=== PATIENT | male | born 1945 | race Caucasian/White ===

== ENCOUNTER 2023-10-29 15:37 | Emergency (ER) | payer OTHER ==
[~2023-10-29] VITALS: Ht 172.7 cm; Wt 80.3 kg
[2023-10-29] MEDS ORDERED: LIDOCAINE/EPI 1% 1:100000 20 ML VIAL INJ ONE (15:45)
[2023-10-29] MEDS ORDERED: ACETAMINOPHEN 500 MG TABLET PO ONE (15:45)
[2023-10-29 15:46] VITALS: BP_SYST 120; PULSE 93; RESP 19; TEMP 99.9; O2SAT 97
[2023-10-29] MEDS ORDERED: DIPHTH,PERTUSS(ACELL),TET VAC 0.5 ML VIAL (Tdap) I.M. ONE (17:00)
[2023-10-29] MEDS ORDERED: BACITRACIN 1 GM OINT TP ONE (17:00)
[2023-10-29] MEDS ORDERED: IBUP-1969 PO (17:06)
[2023-10-29 17:24] VITALS: BP_SYST 118; PULSE 93; RESP 19; TEMP 99.9; O2SAT 97
[2023-10-30] MEDS ORDERED: DIPHTH,PERTUSS(ACELL),TET VAC 0.5 ML VIAL (Tdap) I.M. ONE (11:03)
== END 2023-10-29 17:24 | disposition home or self-care (01) ==
LOC: SED 15:37
DX: S01.01XA Laceration without foreign body of scalp, initial encounter (principal); S09.90XA Unspecified injury of head, initial encounter; Z88.8 Allergy status to other drugs, medicaments and biological substances; Z79.899 Other long term (current) drug therapy; W18.39XA Other fall on same level, initial encounter; Y93.89 Activity, other specified; Y92.89 Other specified places as the place of occurrence of the external cause; Y99.8 Other external cause status
CPT/HCPCS: 70450-TC; 76376; 90715; 93005; 99284

== ENCOUNTER 2023-11-09 18:12 | Emergency (ER) | payer OTHER ==
[~2023-11-09] VITALS: Ht 172.7 cm; Wt 82.6 kg
[~2023-11-09 18:12] MED LIST: IBUP-1969 PO
[2023-11-09 18:13] VITALS: BP_SYST 125; PULSE 93; RESP 19; TEMP 97.2; O2SAT 98
[2023-11-09 18:41] VITALS: BP_SYST 125; PULSE 93; RESP 19; TEMP 97.2; O2SAT 98
== END 2023-11-09 18:41 | disposition home or self-care (01) ==
LOC: SED 18:12
DX: S01.01XD Laceration without foreign body of scalp, subsequent encounter (principal); Z48.02 Encounter for removal of sutures; W18.39XD Other fall on same level, subsequent encounter
CPT/HCPCS: 99281

== ENCOUNTER 2023-11-25 13:07 | Inpatient (IN) | payer OTHER ==
[~2023-11-25] VITALS: Ht 172.7 cm; Wt 73.2 kg
[2023-11-25 13:07] VITALS: BP_SYST 131; PULSE 110; RESP 18; TEMP 97; O2SAT 94
[2023-11-25 15:49] LABS: BASOPHILS % (AUTO) 0.2 % (0.0-2.0); EOSINOPHILS % (AUTO) 0.3 % (0.0-4.0); HEMATOCRIT 41.5 % (36-54); HEMOGLOBIN 13.8 g/dL (14.0-18.0); LYMPHOCYTES # (AUTO) 0.9 K/uL (1.0-5.5); LYMPHOCYTES % (AUTO) 8.2 % (20.5-51.5); MEAN CORPUSCULAR HEMOGLOBIN 30 pg (27-31); MEAN CORPUSCULAR HGB CONC 33 % (32-36); MEAN CORPUSCULAR VOLUME 89 fL (79.0-98.0); MONOCYTES # (AUTO) 1.1 K/uL (0.0-1.0); MONOCYTES % (AUTO) 9.7 % (1.7-9.3); NEUTROPHILS # (AUTO) 9.4 K/uL (1.8-7.7); NEUTROPHILS % (AUTO) 81.6 % (40.0-70.0); PLATELET COUNT (AUTO) 197 K/uL (130-430); RED BLOOD CELL COUNT(AUTO) 4.65 MIL/uL (4.2-6.2); RED CELL DISTRIBUTION WIDTH 12.9 % (9.0-15.0); WHITE BLOOD COUNT (AUTO) 11.5 K/uL (4.8-10.8)
[2023-11-25 16:01] LABS: ALANINE AMINOTRANSFERASE 30 U/L (12-78); ALBUMIN 3.7 g/dL (3.4-4.8); ANION GAP 14 (5-15); ASPARTATE AMINOTRANSFERASE 39 U/L (10-37); BILIRUBIN,DIRECT 0.2 mg/dL (0.0-0.3); CALCIUM 8.3 mg/dL (8.4-11.0); CARBON DIOXIDE 22 mmol/L (23-29); CHLORIDE 98 mmol/L (98-107); CREATININE 1.39 mg/dL (0.55-1.30); GLUCOSE 104 mg/dL (74-106); POTASSIUM 3.8 mmol/L (3.5-5.1); SODIUM SERUM 134 mmol/L (136-145); TOTAL BILIRUBIN 0.9 mg/dL (0.0-1.0); UREA NITROGEN, BLOOD 26 mg/dL (8-21)
[2023-11-26] VITALS (8 sets, daily range): BP systolic 114–133; PULSE 83–113; RESP 16–18; TEMP 97.3–98.8; O2SAT 94–96
[2023-11-26] MEDS ORDERED: METO50TA16 PO (11:21)
[2023-11-26] MEDS ORDERED: OMEP40CA20 PO (11:21)
[2023-11-26] MEDS ORDERED: ATOR20TA64 PO (11:21)
[2023-11-26] MEDS ORDERED: LOSA1TAB43 PO (11:21)
[2023-11-26] MEDS ORDERED: HYDROcodone/ACETAMIN 5-325 MG TAB (NORCO/ VICODIN) PO PRN (17:15)
[2023-11-26] MEDS ORDERED: ONDANSETRON HCL 4 MG/2 ML VIAL IVP PRN (17:15)
[2023-11-26] MEDS ORDERED: MORPHINE 2 MG/ML INJ. SYRINGE IVP PRN (17:15)
[2023-11-26] MEDS ORDERED: ACETAMINOPHEN 325 MG TABLET PO PRN ×2 (17:15→17:30)
[2023-11-26] MEDS ORDERED: HYDROcodone/ACETAMIN 10-325 MG TAB PO PRN (17:15)
[2023-11-26] MEDS ORDERED: NALOXONE HCL 0.4 MG/ML AMP (NARCAN) IVP PRN ×2 (17:15)
[2023-11-26] MEDS ORDERED: LORazepam 1 MG TABLET PO PRN (17:30)
[2023-11-26] MEDS ORDERED: FOLIC ACID 1 MG, THIAMINE HCL 100 MG, MAGNESIUM SULFATE 1 GM, MVI 10 ML in NACL 0.9% 1,... IV SCH (17:30)
[2023-11-26 17:57] LABS: BASOPHILS % (AUTO) 0.6 % (0.0-2.0); EOSINOPHILS # (AUTO) 0.2 K/uL (0.0-0.4); EOSINOPHILS % (AUTO) 2.6 % (0.0-4.0); HEMATOCRIT 41.1 % (36-54); LYMPHOCYTES # (AUTO) 1.8 K/uL (1.0-5.5); LYMPHOCYTES % (AUTO) 20.4 % (20.5-51.5); MEAN CORPUSCULAR HEMOGLOBIN 30 pg (27-31); MEAN CORPUSCULAR HGB CONC 34 % (32-36); MEAN CORPUSCULAR VOLUME 89 fL (79.0-98.0); MONOCYTES # (AUTO) 1.1 K/uL (0.0-1.0); MONOCYTES % (AUTO) 12.3 % (1.7-9.3); NEUTROPHILS # (AUTO) 5.8 K/uL (1.8-7.7); NEUTROPHILS % (AUTO) 64.1 % (40.0-70.0); PLATELET COUNT (AUTO) 194 K/uL (130-430); RED BLOOD CELL COUNT(AUTO) 4.63 MIL/uL (4.2-6.2); RED CELL DISTRIBUTION WIDTH 12.7 % (9.0-15.0)
[2023-11-26] MEDS: FOLIC ACID 1 MG, MVI 10 ML in NACL 0.9% 1,000 ML IV SCH (18:00)
[2023-11-26 18:08] LABS: ALANINE AMINOTRANSFERASE 47 U/L (12-78); ALBUMIN 3.3 g/dL (3.4-4.8); ANION GAP 9 (5-15); ASPARTATE AMINOTRANSFERASE 77 U/L (10-37); CALCIUM 7.6 mg/dL (8.4-11.0); CARBON DIOXIDE 25 mmol/L (23-29); CHLORIDE 98 mmol/L (98-107); CREATININE 1.35 mg/dL (0.55-1.30); GLUCOSE 101 mg/dL (74-106); POTASSIUM 3.7 mmol/L (3.5-5.1); SODIUM SERUM 132 mmol/L (136-145); THYROID STIMULATING HORMONE 1.39 uIu/mL (0.36-3.74); TOTAL BILIRUBIN 0.5 mg/dL (0.0-1.0); TOTAL PROTEIN, SERUM 6.6 g/dL (6.4-8.3); UREA NITROGEN, BLOOD 23 mg/dL (8-21)
[2023-11-26 18:11] LABS: ALCOHOL, BLOOD < 3 mg/dL (<10)
[2023-11-26 18:26] LABS: HEMOGLOBIN A1C 6.16 % (<5.7)
[2023-11-26] MEDS: NS 500 ML IV ONE (18:30)
[2023-11-26] MEDS: NACL 0.9% 1,000 ML IV SCH (18:30)
[2023-11-26] MEDS: ATORVASTATIN 20 MG TABLET PO ONE (21:22)
[2023-11-26] MEDS: LOSARTAN POTASSIUM 50 MG TABLET (COZAAR) PO ONE (21:22)
[2023-11-26] MEDS: ASPIRIN 81 MG TAB.CHEW PO ONE (21:22)
[2023-11-26] MEDS: THIAMINE HCL 100 MG, MAGNESIUM SULFATE 1 GM in NS 100 ML IV SCH (21:26)
[2023-11-27] VITALS: BP_SYST 112; PULSE 110; RESP 16; TEMP 98.6; O2SAT 96
[2023-11-27 07:22] LABS: BASOPHILS # (AUTO) 0.1 K/uL (0.0-0.2); BASOPHILS % (AUTO) 0.7 % (0.0-2.0); EOSINOPHILS # (AUTO) 0.1 K/uL (0.0-0.4); EOSINOPHILS % (AUTO) 1.3 % (0.0-4.0); HEMATOCRIT 40.8 % (36-54); HEMOGLOBIN 13.7 g/dL (14.0-18.0); LYMPHOCYTES # (AUTO) 1.5 K/uL (1.0-5.5); LYMPHOCYTES % (AUTO) 17.2 % (20.5-51.5); MEAN CORPUSCULAR HEMOGLOBIN 30 pg (27-31); MEAN CORPUSCULAR HGB CONC 34 % (32-36); MEAN CORPUSCULAR VOLUME 89 fL (79.0-98.0); MONOCYTES % (AUTO) 11.1 % (1.7-9.3); NEUTROPHILS # (AUTO) 6.1 K/uL (1.8-7.7); NEUTROPHILS % (AUTO) 69.7 % (40.0-70.0); PLATELET COUNT (AUTO) 177 K/uL (130-430); RED BLOOD CELL COUNT(AUTO) 4.57 MIL/uL (4.2-6.2); RED CELL DISTRIBUTION WIDTH 12.6 % (9.0-15.0); WHITE BLOOD COUNT (AUTO) 8.8 K/uL (4.8-10.8)
[2023-11-27 07:34] LABS: ALANINE AMINOTRANSFERASE 44 U/L (12-78); ALBUMIN 3.2 g/dL (3.4-4.8); ANION GAP 13 (5-15); ASPARTATE AMINOTRANSFERASE 57 U/L (10-37); CALCIUM 8.2 mg/dL (8.4-11.0); CARBON DIOXIDE 21 mmol/L (23-29); CHLORIDE 102 mmol/L (98-107); CREATININE 1.08 mg/dL (0.55-1.30); GLUCOSE 105 mg/dL (74-106); POTASSIUM 3.7 mmol/L (3.5-5.1); SODIUM SERUM 136 mmol/L (136-145); TOTAL BILIRUBIN 0.9 mg/dL (0.0-1.0); TOTAL PROTEIN, SERUM 6.3 g/dL (6.4-8.3); UREA NITROGEN, BLOOD 18 mg/dL (8-21)
[2023-11-27 08:00] VITALS: BP_SYST 127; PULSE 69; RESP 16; TEMP 97.8; O2SAT 94
[2023-11-27] MEDS: ATORVASTATIN 20 MG TABLET PO SCH (09:02)
[2023-11-27] MEDS: ASPIRIN 81 MG TAB.CHEW PO SCH (09:02)
[2023-11-27] MEDS: LOSARTAN POTASSIUM 50 MG TABLET (COZAAR) PO SCH (09:03)
[2023-11-27 11:07] VITALS: BP_SYST 109; PULSE 84; RESP 16; TEMP 97.1; O2SAT 96
[2023-11-27 15:05] VITALS: BP_SYST 120; PULSE 72; RESP 16; TEMP 97.8; O2SAT 95
[2023-11-27 19:00] VITALS: BP_SYST 120; PULSE 86; RESP 16; TEMP 99.4; O2SAT 96
[2023-11-27 20:00] VITALS: BP_SYST 120; PULSE 86; RESP 16; TEMP 99.4; O2SAT 96
[2023-11-28] VITALS: BP_SYST 123; PULSE 73; RESP 16; TEMP 98.4; O2SAT 98
[2023-11-28 06:50] LABS: BASOPHILS % (AUTO) 0.5 % (0.0-2.0); EOSINOPHILS # (AUTO) 0.2 K/uL (0.0-0.4); EOSINOPHILS % (AUTO) 3.3 % (0.0-4.0); HEMATOCRIT 40.7 % (36-54); HEMOGLOBIN 13.7 g/dL (14.0-18.0); LYMPHOCYTES # (AUTO) 1.5 K/uL (1.0-5.5); LYMPHOCYTES % (AUTO) 19.5 % (20.5-51.5); MEAN CORPUSCULAR HEMOGLOBIN 30 pg (27-31); MEAN CORPUSCULAR HGB CONC 34 % (32-36); MEAN CORPUSCULAR VOLUME 89 fL (79.0-98.0); MONOCYTES # (AUTO) 0.8 K/uL (0.0-1.0); NEUTROPHILS # (AUTO) 5.1 K/uL (1.8-7.7); NEUTROPHILS % (AUTO) 66.7 % (40.0-70.0); PLATELET COUNT (AUTO) 168 K/uL (130-430); RED BLOOD CELL COUNT(AUTO) 4.55 MIL/uL (4.2-6.2); RED CELL DISTRIBUTION WIDTH 12.7 % (9.0-15.0); WHITE BLOOD COUNT (AUTO) 7.6 K/uL (4.8-10.8)
[2023-11-28 07:26] LABS: ALANINE AMINOTRANSFERASE 45 U/L (12-78); ALBUMIN 3.3 g/dL (3.4-4.8); ANION GAP 10 (5-15); ASPARTATE AMINOTRANSFERASE 40 U/L (10-37); CALCIUM 8.2 mg/dL (8.4-11.0); CARBON DIOXIDE 25 mmol/L (23-29); CHLORIDE 104 mmol/L (98-107); CREATININE 0.98 mg/dL (0.55-1.30); GLUCOSE 92 mg/dL (74-106); POTASSIUM 3.7 mmol/L (3.5-5.1); SODIUM SERUM 139 mmol/L (136-145); TOTAL BILIRUBIN 0.7 mg/dL (0.0-1.0); TOTAL PROTEIN, SERUM 6.4 g/dL (6.4-8.3); UREA NITROGEN, BLOOD 14 mg/dL (8-21)
[2023-11-28 08:00] VITALS: BP_SYST 147; PULSE 82; RESP 18; TEMP 98.5; O2SAT 95; O2SAT 98
[2023-11-28 11:32] VITALS: BP_SYST 126; PULSE 101; RESP 15; TEMP 97.5; O2SAT 100
[2023-11-28 15:09] VITALS: BP_SYST 120; PULSE 78; RESP 16; TEMP 97.4; O2SAT 95
[2023-11-28 20:00] VITALS: BP_SYST 108; PULSE 76; RESP 18; TEMP 98; O2SAT 100
[2023-11-28 20:59] LABS: CKMB RELATIVE INDEX 0.3 (0.0-2.9); CREATINE KINASE MB 1.6 ng/mL (0-3.6)
[2023-11-29 00:06] LABS: FOLATE (FOLIC ACID) 7.1 ng/mL (>3.0)
[2023-11-29 01:34] VITALS: BP_SYST 163; PULSE 80; RESP 17; TEMP 97.6; O2SAT 97
[2023-11-29 06:15] LABS: BASOPHILS % (AUTO) 0.3 % (0.0-2.0); EOSINOPHILS # (AUTO) 0.1 K/uL (0.0-0.4); EOSINOPHILS % (AUTO) 1.3 % (0.0-4.0); HEMATOCRIT 36.8 % (36-54); HEMOGLOBIN 12.6 g/dL (14.0-18.0); LYMPHOCYTES # (AUTO) 0.8 K/uL (1.0-5.5); LYMPHOCYTES % (AUTO) 7.2 % (20.5-51.5); MEAN CORPUSCULAR HEMOGLOBIN 30 pg (27-31); MEAN CORPUSCULAR HGB CONC 34 % (32-36); MEAN CORPUSCULAR VOLUME 89 fL (79.0-98.0); MONOCYTES # (AUTO) 1.1 K/uL (0.0-1.0); MONOCYTES % (AUTO) 10.1 % (1.7-9.3); NEUTROPHILS # (AUTO) 8.8 K/uL (1.8-7.7); NEUTROPHILS % (AUTO) 81.1 % (40.0-70.0); PLATELET COUNT (AUTO) 153 K/uL (130-430); RED BLOOD CELL COUNT(AUTO) 4.15 MIL/uL (4.2-6.2); RED CELL DISTRIBUTION WIDTH 12.8 % (9.0-15.0); WHITE BLOOD COUNT (AUTO) 10.9 K/uL (4.8-10.8)
[2023-11-29 06:40] LABS: ANION GAP 11 (5-15); CALCIUM 8.1 mg/dL (8.4-11.0); CARBON DIOXIDE 22 mmol/L (23-29); CHLORIDE 107 mmol/L (98-107); CREATININE 0.98 mg/dL (0.55-1.30); GLUCOSE 114 mg/dL (74-106); POTASSIUM 3.8 mmol/L (3.5-5.1); SODIUM SERUM 140 mmol/L (136-145); UREA NITROGEN, BLOOD 11 mg/dL (8-21)
[2023-11-29 08:00] VITALS: BP_SYST 127; PULSE 96; RESP 16; TEMP 98.8; O2SAT 95
[2023-11-29] MEDS ORDERED: OMEPRAZOLE Non-Formulary 20 MG CAPSULE.DR PO SCH (09:00)
[2023-11-29] MEDS ORDERED: PRO40 PO (09:08)
[2023-11-29] MEDS ORDERED: ASA81 PO (09:08)
[2023-11-29] MEDS ORDERED: THIA50TA10 PO (09:08)
[2023-11-29] MEDS: PANTOPRAZOLE SODIUM 40 MG TAB PO SCH (10:05)
[2023-11-29 12:00] VITALS: BP_SYST 121; PULSE 90; RESP 18; TEMP 97.9; O2SAT 95
[2023-11-29 12:01] VITALS: O2SAT 95
[2023-11-29 16:00] VITALS: BP_SYST 129; PULSE 92; RESP 16; TEMP 98.3; O2SAT 95
[2023-11-29 17:43] VITALS: BP_SYST 129; PULSE 92; RESP 16; TEMP 98.3; O2SAT 95
[2023-11-29] MEDS ORDERED: METOPROLOL TARTRATE 50 MG TABLET PO SCH (21:00)
== END 2023-11-29 20:10 | DRG 56 ==
LOC: SED 13:07 → SMU 19:27
PROVIDERS: ADMIT Internal Medicine; ATTEND Family Medicine
DX: G31.2 Degeneration of nervous system due to alcohol (principal); N17.0 Acute kidney failure with tubular necrosis; E87.1 Hypo-osmolality and hyponatremia; F10.20 Alcohol dependence, uncomplicated; E86.0 Dehydration; E78.5 Hyperlipidemia, unspecified; F03.90 Unspecified dementia, unspecified severity, without behavioral disturbance, psychotic disturbance, mood disturbance, and anxiety; R00.0 Tachycardia, unspecified; I12.9 Hypertensive chronic kidney disease with stage 1 through stage 4 chronic kidney disease, or unspecified chronic kidney disease; N18.9 Chronic kidney disease, unspecified; R25.1 Tremor, unspecified
CPT/HCPCS: 36415; 70450-TC; 70551; 76376; 80048; 80053; 80076; 82085; 82140; 82550; 82553; 82607; 82746; 83037; 84443; 85025; 85651; 95816; 97112-GP; 97116-GP; 97530-GP; 99285; G0482; J3411; J3475; J3490; J7030

== ENCOUNTER 2023-12-08 16:48 | Inpatient (IN) | payer OTHER ==
[~2023-12-08] VITALS: Ht 157.5 cm; Wt 101.8 kg
[~2023-12-08 16:48] MED LIST changes: +ASA81 PO; -IBUP-1969 PO; +LOSA1TAB43 PO; +METO50TA16 PO; +OMEP40CA20 PO; +PRO40 PO; +THIA50TA10 PO
[2023-12-08 16:54] VITALS: BP_SYST 134; PULSE 116; RESP 19; TEMP 98.8; O2SAT 90
[2023-12-08 18:16] LABS: HEMATOCRIT 36.2 % (36-54); HEMOGLOBIN 11.9 g/dL (14.0-18.0); MEAN CORPUSCULAR HEMOGLOBIN 29 pg (27-31); MEAN CORPUSCULAR HGB CONC 33 % (32-36); MEAN CORPUSCULAR VOLUME 89 fL (79.0-98.0); PLATELET COUNT (AUTO) 450 K/uL (130-430); RED BLOOD CELL COUNT(AUTO) 4.06 MIL/uL (4.2-6.2); RED CELL DISTRIBUTION WIDTH 13.8 % (9.0-15.0); WHITE BLOOD COUNT (AUTO) 17.8 K/uL (4.8-10.8)
[2023-12-08 18:29] LABS: ANION GAP 12 (5-15); CALCIUM 8.5 mg/dL (8.4-11.0); CARBON DIOXIDE 28 mmol/L (23-29); CHLORIDE 109 mmol/L (98-107); GLUCOSE 149 mg/dL (74-106); INR 1.1 (0.80-1.20); POTASSIUM 3.5 mmol/L (3.5-5.1); PROTHROMBIN TIME 11.8 SECS (9.5-12.5); SODIUM SERUM 149 mmol/L (136-145); UREA NITROGEN, BLOOD 30 mg/dL (8-21)
[2023-12-08 18:34] LABS: BAND % (MANUAL) 5 % (0-6); BASOPHILS % (MANUAL) 0 % (0-2); EOSINOPHILS % (MANUAL) 0 % (0-7); LYMPHOCYTES % (MANUAL) 8 % (20-46); METAMYELOCYTES % 1 % (0-0); MONOCYTES % (MANUAL) 4 % (0-11); PLATELET ESTIMATE INCREASED (ADEQUATE)
[2023-12-08 18:50] LABS: BILIRUBIN,URINE 1+ (NEGATIVE); BLOOD, URINE 3+ (NEGATIVE); CLARITY/URINE CLOUDY (CLEAR); COLOR,URINE RED (YELLOW); GLUCOSE,URINE NEGATIVE (NEGATIVE); KETONES,URINE NEGATIVE (NEGATIVE); LEUKOCYTE ESTERASE ,URINE NEGATIVE (NEGATIVE); NITRITE, URINE POSITIVE (NEGATIVE); PROTEIN URINE 3+ (NEGATIVE)
[2023-12-08 18:52] LABS: ALANINE AMINOTRANSFERASE 118 U/L (12-78); ASPARTATE AMINOTRANSFERASE 47 U/L (10-37); BILIRUBIN,DIRECT 0.1 mg/dL (0.0-0.3); TOTAL BILIRUBIN 0.3 mg/dL (0.0-1.0)
[2023-12-08 19:03] LABS: BACTERIA,URINE None Seen /HPF (None Seen); MUCUS,URINE 1+ /LPF (None Seen); RBC,URINE >100 /HPF (0-3); URIC ACID CRYSTALS,URINE 0-10 /HPF (None Seen); WBC,URINE 20-50 /HPF (0-3)
[2023-12-08] MEDS ORDERED: cefTRIAXone 2 GM VIAL ONE (19:28)
[2023-12-08] MEDS ORDERED: ACETAMINOPHEN 325 MG SUPP.RECT RC ONE (19:30)
[2023-12-08] MEDS ORDERED: MORPHINE 4 MG INJ. 4 MG/ML VIAL IVP PRN (20:45)
[2023-12-08] MEDS ORDERED: NACL 0.9% 1,000 ML IV ONE (20:45)
[2023-12-08] MEDS ORDERED: ONDANSETRON HCL 4 MG/2 ML VIAL IVP PRN (20:45)
[2023-12-08] MEDS ORDERED: HYDROcodone/ACETAMIN 5-325 MG TAB (NORCO/ VICODIN) PO PRN (20:45)
[2023-12-08] MEDS ORDERED: ACETAMINOPHEN 325 MG TABLET PO PRN (20:45)
[2023-12-08] MEDS ORDERED: HYDROcodone/ACETAMIN 10-325 MG TAB PO PRN (20:45)
[2023-12-08] MEDS: METOPROLOL TARTRATE 50 MG TABLET PO SCH (21:00)
[2023-12-08 22:31] VITALS: BP_SYST 128; PULSE 112; RESP 18; TEMP 99.2; O2SAT 95
[2023-12-08] MEDS ORDERED: hydrALAZINE HCL 20 MG/ML VIAL IVP PRN (23:15)
[2023-12-08] MEDS ORDERED: LORazepam 2 MG/ML VIAL IVP ONE (23:15)
[2023-12-08] MEDS: NACL 0.9% 1,000 ML IV SCH (23:33)
[2023-12-09] VITALS (10 sets, daily range): BP systolic 118–145; PULSE 74–108; RESP 16–19; TEMP 97–98.9; O2SAT 93–99
[2023-12-09 06:18] LABS: BASOPHILS % (AUTO) 0.2 % (0.0-2.0); EOSINOPHILS # (AUTO) 0.1 K/uL (0.0-0.4); EOSINOPHILS % (AUTO) 0.8 % (0.0-4.0); HEMATOCRIT 32.1 % (36-54); HEMOGLOBIN 10.5 g/dL (14.0-18.0); LYMPHOCYTES # (AUTO) 1.5 K/uL (1.0-5.5); LYMPHOCYTES % (AUTO) 9.9 % (20.5-51.5); MEAN CORPUSCULAR HEMOGLOBIN 29 pg (27-31); MEAN CORPUSCULAR HGB CONC 33 % (32-36); MEAN CORPUSCULAR VOLUME 90 fL (79.0-98.0); MONOCYTES # (AUTO) 1.3 K/uL (0.0-1.0); NEUTROPHILS # (AUTO) 11.8 K/uL (1.8-7.7); NEUTROPHILS % (AUTO) 80.1 % (40.0-70.0); PLATELET COUNT (AUTO) 365 K/uL (130-430); RED BLOOD CELL COUNT(AUTO) 3.58 MIL/uL (4.2-6.2); RED CELL DISTRIBUTION WIDTH 13.6 % (9.0-15.0); WHITE BLOOD COUNT (AUTO) 14.7 K/uL (4.8-10.8)
[2023-12-09 06:57] LABS: ALANINE AMINOTRANSFERASE 90 U/L (12-78); ALBUMIN 1.8 g/dL (3.4-4.8); ANION GAP 10 (5-15); ASPARTATE AMINOTRANSFERASE 32 U/L (10-37); CARBON DIOXIDE 26 mmol/L (23-29); CHLORIDE 115 mmol/L (98-107); CREATININE 1.34 mg/dL (0.55-1.30); GLUCOSE 109 mg/dL (74-106); POTASSIUM 4.4 mmol/L (3.5-5.1); SODIUM SERUM 151 mmol/L (136-145); TOTAL BILIRUBIN 0.2 mg/dL (0.0-1.0); TOTAL PROTEIN, SERUM 6.2 g/dL (6.4-8.3); UREA NITROGEN, BLOOD 26 mg/dL (8-21)
[2023-12-09] MEDS: ASPIRIN 81 MG TAB.CHEW PO SCH (08:22)
[2023-12-09] MEDS: NACL 0.9% 1,000 ML IV SCH (08:31)
[2023-12-09] MEDS ORDERED: cefTRIAXone 1 GM in D5W 50 ML IV SCH (09:00)
[2023-12-09] MEDS ORDERED: NS 500 ML IV ONE (10:00)
[2023-12-09] MEDS ORDERED: IPRATROPIUM/ALBUTEROL SULFATE 3 ML AMPUL.NEB (DUONEB) INH ONE (10:15)
[2023-12-09] MEDS: D5/0.45 NS 1,000 ML IV SCH ×2 (11:34→21:09)
[2023-12-09] MEDS: CEFEPIME 2 GM in D5W 100 ML IV SCH (11:47)
[2023-12-09] MEDS: VANCOMYCIN HCL 1.25 GM/NS 250 ML IV SCH (13:23)
[2023-12-09] MEDS: IPRATROPIUM/ALBUTEROL SULFATE 3 ML AMPUL.NEB (DUONEB) INH SCH ×3 (15:40→23:01)
[2023-12-09] MEDS: METOPROLOL TARTRATE 50 MG TABLET PO SCH (21:00)
[2023-12-10] VITALS (13 sets, daily range): BP systolic 94–123; PULSE 67–85; RESP 16–18; TEMP 97.1–97.9; O2SAT 93–99
[2023-12-10] MEDS: IPRATROPIUM/ALBUTEROL SULFATE 3 ML AMPUL.NEB (DUONEB) INH SCH ×6 (03:42→23:17)
[2023-12-10] MEDS: D5/0.45 NS 1,000 ML IV SCH ×2 (06:12→19:49)
[2023-12-10] MEDS: ASPIRIN 81 MG TAB.CHEW PO SCH (09:00)
[2023-12-10] MEDS: DOXYCYCLINE HYCLATE 100 MG CAPSULE PO SCH ×2 (09:00→21:34)
[2023-12-10 09:46] LABS: BASOPHILS % (AUTO) 0.3 % (0.0-2.0); EOSINOPHILS # (AUTO) 0.3 K/uL (0.0-0.4); EOSINOPHILS % (AUTO) 2.9 % (0.0-4.0); HEMATOCRIT 31.8 % (36-54); HEMOGLOBIN 10.5 g/dL (14.0-18.0); LYMPHOCYTES # (AUTO) 1.6 K/uL (1.0-5.5); LYMPHOCYTES % (AUTO) 16.9 % (20.5-51.5); MEAN CORPUSCULAR HEMOGLOBIN 30 pg (27-31); MEAN CORPUSCULAR HGB CONC 33 % (32-36); MEAN CORPUSCULAR VOLUME 90 fL (79.0-98.0); MONOCYTES # (AUTO) 0.9 K/uL (0.0-1.0); MONOCYTES % (AUTO) 9.4 % (1.7-9.3); NEUTROPHILS # (AUTO) 6.6 K/uL (1.8-7.7); NEUTROPHILS % (AUTO) 70.5 % (40.0-70.0); PLATELET COUNT (AUTO) 337 K/uL (130-430); RED BLOOD CELL COUNT(AUTO) 3.54 MIL/uL (4.2-6.2); RED CELL DISTRIBUTION WIDTH 13.2 % (9.0-15.0); WHITE BLOOD COUNT (AUTO) 9.3 K/uL (4.8-10.8)
[2023-12-10 10:12] LABS: ALANINE AMINOTRANSFERASE 65 U/L (12-78); ALBUMIN 1.8 g/dL (3.4-4.8); ANION GAP 7 (5-15); ASPARTATE AMINOTRANSFERASE 28 U/L (10-37); CALCIUM 8.1 mg/dL (8.4-11.0); CARBON DIOXIDE 28 mmol/L (23-29); CHLORIDE 113 mmol/L (98-107); GLUCOSE 140 mg/dL (74-106); SODIUM SERUM 148 mmol/L (136-145); TOTAL BILIRUBIN 0.3 mg/dL (0.0-1.0); TOTAL PROTEIN, SERUM 6.2 g/dL (6.4-8.3); UREA NITROGEN, BLOOD 17 mg/dL (8-21)
[2023-12-10] MEDS: CEFEPIME 2 GM in D5W 100 ML IV SCH (12:26)
[2023-12-10] MEDS: VANCOMYCIN HCL 1.25 GM/NS 250 ML IV SCH (13:41)
[2023-12-10 20:38] LABS: COVID19 ANTIGEN SOFIA FIA NEGATIVE (NEGATIVE); INFLUENZA TYPE A Negative (NEGATIVE); INFLUENZA TYPE B NEGATIVE (NEGATIVE)
[2023-12-10] MEDS: METOPROLOL TARTRATE 50 MG TABLET PO SCH (21:00)
[2023-12-11] VITALS (11 sets, daily range): BP systolic 108–134; PULSE 67–85; RESP 16–20; TEMP 97.2–98.8; O2SAT 90–98
[2023-12-11] MEDS: D5/0.45 NS 1,000 ML IV SCH (03:53)
[2023-12-11] MEDS: IPRATROPIUM/ALBUTEROL SULFATE 3 ML AMPUL.NEB (DUONEB) INH SCH ×5 (05:46→20:01)
[2023-12-11 08:26] LABS: BASOPHILS % (AUTO) 0.3 % (0.0-2.0); EOSINOPHILS # (AUTO) 0.3 K/uL (0.0-0.4); EOSINOPHILS % (AUTO) 4.5 % (0.0-4.0); HEMATOCRIT 32.8 % (36-54); HEMOGLOBIN 10.8 g/dL (14.0-18.0); LYMPHOCYTES # (AUTO) 1.3 K/uL (1.0-5.5); LYMPHOCYTES % (AUTO) 17.5 % (20.5-51.5); MEAN CORPUSCULAR HEMOGLOBIN 29 pg (27-31); MEAN CORPUSCULAR HGB CONC 33 % (32-36); MEAN CORPUSCULAR VOLUME 89 fL (79.0-98.0); MONOCYTES # (AUTO) 0.6 K/uL (0.0-1.0); MONOCYTES % (AUTO) 8.3 % (1.7-9.3); NEUTROPHILS # (AUTO) 5.2 K/uL (1.8-7.7); NEUTROPHILS % (AUTO) 69.4 % (40.0-70.0); PLATELET COUNT (AUTO) 317 K/uL (130-430); RED BLOOD CELL COUNT(AUTO) 3.68 MIL/uL (4.2-6.2); RED CELL DISTRIBUTION WIDTH 13.6 % (9.0-15.0); WHITE BLOOD COUNT (AUTO) 7.4 K/uL (4.8-10.8)
[2023-12-11 08:42] LABS: ALANINE AMINOTRANSFERASE 49 U/L (12-78); ALBUMIN 1.8 g/dL (3.4-4.8); ANION GAP 10 (5-15); ASPARTATE AMINOTRANSFERASE 24 U/L (10-37); CARBON DIOXIDE 24 mmol/L (23-29); CHLORIDE 108 mmol/L (98-107); CREATININE 1.08 mg/dL (0.55-1.30); GLUCOSE 142 mg/dL (74-106); POTASSIUM 3.6 mmol/L (3.5-5.1); SODIUM SERUM 142 mmol/L (136-145); TOTAL BILIRUBIN 0.4 mg/dL (0.0-1.0); TOTAL PROTEIN, SERUM 6.2 g/dL (6.4-8.3); UREA NITROGEN, BLOOD 13 mg/dL (8-21)
[2023-12-11] MEDS: CEFEPIME 2 GM in D5W 100 ML IV SCH (11:19)
[2023-12-11] MEDS: DOXYCYCLINE HYCLATE 100 MG CAPSULE PO SCH ×2 (11:19→20:56)
[2023-12-11] MEDS: ASPIRIN 81 MG TAB.CHEW PO SCH (11:19)
[2023-12-11] MEDS: VANCOMYCIN HCL 1.25 GM/NS 250 ML IV SCH (12:58)
[2023-12-11] MEDS: METOPROLOL TARTRATE 50 MG TABLET PO SCH (20:56)
[2023-12-12] VITALS (13 sets, daily range): BP systolic 112–129; PULSE 67–96; RESP 16–20; TEMP 97.1–98.3; O2SAT 92–98
[2023-12-12] MEDS: IPRATROPIUM/ALBUTEROL SULFATE 3 ML AMPUL.NEB (DUONEB) INH SCH ×7 (00:07→23:37)
[2023-12-12 05:36] LABS: ERYTHROCYTE SEDIMENTATION RATE 22 MM/HR (0-15)
[2023-12-12 05:43] LABS: BASOPHILS % (AUTO) 0.5 % (0.0-2.0); EOSINOPHILS # (AUTO) 0.4 K/uL (0.0-0.4); EOSINOPHILS % (AUTO) 5.4 % (0.0-4.0); HEMATOCRIT 32.3 % (36-54); HEMOGLOBIN 10.7 g/dL (14.0-18.0); LYMPHOCYTES # (AUTO) 1.3 K/uL (1.0-5.5); LYMPHOCYTES % (AUTO) 17.7 % (20.5-51.5); MEAN CORPUSCULAR HEMOGLOBIN 29 pg (27-31); MEAN CORPUSCULAR HGB CONC 33 % (32-36); MEAN CORPUSCULAR VOLUME 89 fL (79.0-98.0); MONOCYTES # (AUTO) 0.7 K/uL (0.0-1.0); MONOCYTES % (AUTO) 9.1 % (1.7-9.3); NEUTROPHILS # (AUTO) 4.9 K/uL (1.8-7.7); NEUTROPHILS % (AUTO) 67.3 % (40.0-70.0); PLATELET COUNT (AUTO) 311 K/uL (130-430); RED BLOOD CELL COUNT(AUTO) 3.65 MIL/uL (4.2-6.2); RED CELL DISTRIBUTION WIDTH 13.3 % (9.0-15.0); WHITE BLOOD COUNT (AUTO) 7.2 K/uL (4.8-10.8)
[2023-12-12 06:14] LABS: ALANINE AMINOTRANSFERASE 41 U/L (12-78); ALBUMIN 1.9 g/dL (3.4-4.8); ANION GAP 10 (5-15); ASPARTATE AMINOTRANSFERASE 21 U/L (10-37); CALCIUM 8.1 mg/dL (8.4-11.0); CARBON DIOXIDE 26 mmol/L (23-29); CHLORIDE 106 mmol/L (98-107); CREATININE 1.06 mg/dL (0.55-1.30); GLUCOSE 97 mg/dL (74-106); POTASSIUM 4.1 mmol/L (3.5-5.1); SODIUM SERUM 142 mmol/L (136-145); TOTAL BILIRUBIN 0.6 mg/dL (0.0-1.0); TOTAL PROTEIN, SERUM 6.2 g/dL (6.4-8.3); UREA NITROGEN, BLOOD 11 mg/dL (8-21)
[2023-12-12] MEDS: ASPIRIN 81 MG TAB.CHEW PO SCH (08:53)
[2023-12-12] MEDS: DOXYCYCLINE HYCLATE 100 MG CAPSULE PO SCH ×2 (08:53→21:25)
[2023-12-12] MEDS: CEFEPIME 2 GM in D5W 100 ML IV SCH (12:16)
[2023-12-12] MEDS: METOPROLOL TARTRATE 50 MG TABLET PO SCH (21:25)
[2023-12-13] VITALS (11 sets, daily range): BP systolic 102–124; PULSE 60–116; RESP 15–22; TEMP 97.5–98.5; O2SAT 91–98
[2023-12-13] MEDS: IPRATROPIUM/ALBUTEROL SULFATE 3 ML AMPUL.NEB (DUONEB) INH SCH ×5 (03:00→20:50)
[2023-12-13 05:47] LABS: ERYTHROCYTE SEDIMENTATION RATE 47 MM/HR (0-15)
[2023-12-13 05:54] LABS: BASOPHILS % (AUTO) 0.7 % (0.0-2.0); EOSINOPHILS # (AUTO) 0.3 K/uL (0.0-0.4); EOSINOPHILS % (AUTO) 4.4 % (0.0-4.0); HEMATOCRIT 33.3 % (36-54); HEMOGLOBIN 11.2 g/dL (14.0-18.0); LYMPHOCYTES # (AUTO) 1.2 K/uL (1.0-5.5); LYMPHOCYTES % (AUTO) 16.9 % (20.5-51.5); MEAN CORPUSCULAR HEMOGLOBIN 30 pg (27-31); MEAN CORPUSCULAR HGB CONC 34 % (32-36); MONOCYTES # (AUTO) 0.7 K/uL (0.0-1.0); MONOCYTES % (AUTO) 10.2 % (1.7-9.3); NEUTROPHILS # (AUTO) 4.7 K/uL (1.8-7.7); NEUTROPHILS % (AUTO) 67.8 % (40.0-70.0); PLATELET COUNT (AUTO) 296 K/uL (130-430); RED BLOOD CELL COUNT(AUTO) 3.82 MIL/uL (4.2-6.2)
[2023-12-13 06:34] LABS: ALANINE AMINOTRANSFERASE 40 U/L (12-78); ANION GAP 12 (5-15); ASPARTATE AMINOTRANSFERASE 23 U/L (10-37); CALCIUM 8.2 mg/dL (8.4-11.0); CARBON DIOXIDE 24 mmol/L (23-29); CHLORIDE 105 mmol/L (98-107); CREATININE 1.07 mg/dL (0.55-1.30); GLUCOSE 96 mg/dL (74-106); POTASSIUM 3.7 mmol/L (3.5-5.1); SODIUM SERUM 141 mmol/L (136-145); TOTAL BILIRUBIN 0.4 mg/dL (0.0-1.0); TOTAL PROTEIN, SERUM 6.2 g/dL (6.4-8.3); UREA NITROGEN, BLOOD 14 mg/dL (8-21)
[2023-12-13 08:19] LABS: MEAN CORPUSCULAR VOLUME 87 fL (79.0-98.0)
[2023-12-13] MEDS: ASPIRIN 81 MG TAB.CHEW PO SCH (10:38)
[2023-12-13] MEDS: DOXYCYCLINE HYCLATE 100 MG CAPSULE PO SCH ×2 (10:39→21:29)
[2023-12-13] MEDS: CEFEPIME 2 GM in D5W 100 ML IV SCH (10:40)
[2023-12-13] MEDS ORDERED: DOXY100C5 PO (12:28)
[2023-12-13] MEDS ORDERED: CEFE2FRO IV (12:28)
[2023-12-13] MEDS ORDERED: LORazepam 2 MG/ML VIAL IVP ONE (21:15)
[2023-12-13] MEDS: METOPROLOL TARTRATE 50 MG TABLET PO SCH (21:29)
[2023-12-14] VITALS (10 sets, daily range): BP systolic 97–121; PULSE 99–109; RESP 18–20; TEMP 98.5–98.8; O2SAT 88–98
[2023-12-14] MEDS: IPRATROPIUM/ALBUTEROL SULFATE 3 ML AMPUL.NEB (DUONEB) INH SCH ×7 (00:03→23:20)
[2023-12-14 07:25] LABS: ALANINE AMINOTRANSFERASE 54 U/L (12-78); ALBUMIN 2.2 g/dL (3.4-4.8); ANION GAP 11 (5-15); BASOPHILS # (AUTO) 0.1 K/uL (0.0-0.2); BASOPHILS % (AUTO) 0.5 % (0.0-2.0); CARBON DIOXIDE 23 mmol/L (23-29); CHLORIDE 108 mmol/L (98-107); CREATININE 1.11 mg/dL (0.55-1.30); EOSINOPHILS # (AUTO) 0.3 K/uL (0.0-0.4); EOSINOPHILS % (AUTO) 2.4 % (0.0-4.0); GLUCOSE 114 mg/dL (74-106); HEMATOCRIT 35.4 % (36-54); HEMOGLOBIN 11.8 g/dL (14.0-18.0); LYMPHOCYTES # (AUTO) 1.2 K/uL (1.0-5.5); LYMPHOCYTES % (AUTO) 11.3 % (20.5-51.5); MEAN CORPUSCULAR HEMOGLOBIN 29 pg (27-31); MEAN CORPUSCULAR HGB CONC 33 % (32-36); MEAN CORPUSCULAR VOLUME 88 fL (79.0-98.0); MONOCYTES % (AUTO) 9.3 % (1.7-9.3); NEUTROPHILS # (AUTO) 8.3 K/uL (1.8-7.7); NEUTROPHILS % (AUTO) 76.5 % (40.0-70.0); PLATELET COUNT (AUTO) 324 K/uL (130-430); POTASSIUM 3.8 mmol/L (3.5-5.1); RED BLOOD CELL COUNT(AUTO) 4.02 MIL/uL (4.2-6.2); RED CELL DISTRIBUTION WIDTH 13.1 % (9.0-15.0); SODIUM SERUM 142 mmol/L (136-145); TOTAL BILIRUBIN 0.4 mg/dL (0.0-1.0); TOTAL PROTEIN, SERUM 6.5 g/dL (6.4-8.3); UREA NITROGEN, BLOOD 22 mg/dL (8-21); WHITE BLOOD COUNT (AUTO) 10.8 K/uL (4.8-10.8)
[2023-12-14 08:02] LABS: ASPARTATE AMINOTRANSFERASE 53 U/L (10-37); ERYTHROCYTE SEDIMENTATION RATE 77 MM/HR (0-15)
[2023-12-14] MEDS: ASPIRIN 81 MG TAB.CHEW PO SCH (09:31)
[2023-12-14] MEDS: DOXYCYCLINE HYCLATE 100 MG CAPSULE PO SCH ×2 (09:31→21:06)
[2023-12-14] MEDS: CEFEPIME 2 GM in D5W 100 ML IV SCH (11:26)
[2023-12-14] MEDS ORDERED: METOPROLOL SUCCINATE 25 MG TAB.SR.24H (TOPROL XL) PO ONE (16:15)
[2023-12-14] MEDS: METOPROLOL TARTRATE 50 MG TABLET PO SCH (21:06)
[2023-12-15] VITALS (13 sets, daily range): BP systolic 106–118; PULSE 97–128; RESP 16–20; TEMP 98.2–100.7; O2SAT 92–99
[2023-12-15] MEDS: IPRATROPIUM/ALBUTEROL SULFATE 3 ML AMPUL.NEB (DUONEB) INH SCH ×6 (03:34→23:22)
[2023-12-15 06:30] LABS: BASOPHILS # (AUTO) 0.1 K/uL (0.0-0.2); BASOPHILS % (AUTO) 0.5 % (0.0-2.0); EOSINOPHILS # (AUTO) 0.3 K/uL (0.0-0.4); EOSINOPHILS % (AUTO) 2.1 % (0.0-4.0); HEMATOCRIT 36.9 % (36-54); HEMOGLOBIN 12.2 g/dL (14.0-18.0); LYMPHOCYTES # (AUTO) 1.3 K/uL (1.0-5.5); LYMPHOCYTES % (AUTO) 9.8 % (20.5-51.5); MEAN CORPUSCULAR HEMOGLOBIN 29 pg (27-31); MEAN CORPUSCULAR HGB CONC 33 % (32-36); MEAN CORPUSCULAR VOLUME 88 fL (79.0-98.0); MONOCYTES # (AUTO) 1.3 K/uL (0.0-1.0); NEUTROPHILS # (AUTO) 10.1 K/uL (1.8-7.7); NEUTROPHILS % (AUTO) 77.6 % (40.0-70.0); PLATELET COUNT (AUTO) 347 K/uL (130-430); RED BLOOD CELL COUNT(AUTO) 4.21 MIL/uL (4.2-6.2); RED CELL DISTRIBUTION WIDTH 13.6 % (9.0-15.0)
[2023-12-15 06:41] LABS: ERYTHROCYTE SEDIMENTATION RATE 84 MM/HR (0-15)
[2023-12-15 07:09] LABS: ALANINE AMINOTRANSFERASE 66 U/L (12-78); ALBUMIN 2.3 g/dL (3.4-4.8); ANION GAP 11 (5-15); ASPARTATE AMINOTRANSFERASE 52 U/L (10-37); CALCIUM 8.7 mg/dL (8.4-11.0); CARBON DIOXIDE 22 mmol/L (23-29); CHLORIDE 108 mmol/L (98-107); CREATININE 1.15 mg/dL (0.55-1.30); GLUCOSE 128 mg/dL (74-106); POTASSIUM 3.9 mmol/L (3.5-5.1); SODIUM SERUM 141 mmol/L (136-145); TOTAL BILIRUBIN 0.6 mg/dL (0.0-1.0); TOTAL PROTEIN, SERUM 6.7 g/dL (6.4-8.3); UREA NITROGEN, BLOOD 25 mg/dL (8-21)
[2023-12-15] MEDS: ASPIRIN 81 MG TAB.CHEW PO SCH (09:43)
[2023-12-15] MEDS: DOXYCYCLINE HYCLATE 100 MG CAPSULE PO SCH ×2 (09:43→20:53)
[2023-12-15] MEDS: CEFEPIME 2 GM in D5W 100 ML IV SCH (11:50)
[2023-12-15] MEDS: METOPROLOL TARTRATE 50 MG TABLET PO SCH (20:53)
[2023-12-16] VITALS (12 sets, daily range): BP systolic 104–119; PULSE 84–130; RESP 16–20; TEMP 97.1–98.6; O2SAT 92–98
[2023-12-16] MEDS: IPRATROPIUM/ALBUTEROL SULFATE 3 ML AMPUL.NEB (DUONEB) INH SCH ×6 (03:31→23:22)
[2023-12-16 08:13] LABS: ALANINE AMINOTRANSFERASE 77 U/L (12-78); ALBUMIN 2.2 g/dL (3.4-4.8); ANION GAP 12 (5-15); ASPARTATE AMINOTRANSFERASE 48 U/L (10-37); CALCIUM 8.9 mg/dL (8.4-11.0); CARBON DIOXIDE 24 mmol/L (23-29); CHLORIDE 109 mmol/L (98-107); CREATININE 1.26 mg/dL (0.55-1.30); GLUCOSE 119 mg/dL (74-106); POTASSIUM 4.5 mmol/L (3.5-5.1); SODIUM SERUM 145 mmol/L (136-145); TOTAL BILIRUBIN 0.7 mg/dL (0.0-1.0); TOTAL PROTEIN, SERUM 6.7 g/dL (6.4-8.3); UREA NITROGEN, BLOOD 35 mg/dL (8-21)
[2023-12-16 08:21] LABS: BASOPHILS % (AUTO) 0.2 % (0.0-2.0); EOSINOPHILS # (AUTO) 0.2 K/uL (0.0-0.4); EOSINOPHILS % (AUTO) 1.1 % (0.0-4.0); HEMATOCRIT 37.3 % (36-54); HEMOGLOBIN 12.4 g/dL (14.0-18.0); LYMPHOCYTES # (AUTO) 1.1 K/uL (1.0-5.5); LYMPHOCYTES % (AUTO) 6.2 % (20.5-51.5); MEAN CORPUSCULAR HEMOGLOBIN 29 pg (27-31); MEAN CORPUSCULAR HGB CONC 33 % (32-36); MEAN CORPUSCULAR VOLUME 89 fL (79.0-98.0); MONOCYTES # (AUTO) 1.3 K/uL (0.0-1.0); MONOCYTES % (AUTO) 7.6 % (1.7-9.3); NEUTROPHILS # (AUTO) 14.9 K/uL (1.8-7.7); NEUTROPHILS % (AUTO) 84.9 % (40.0-70.0); PLATELET COUNT (AUTO) 404 K/uL (130-430); RED BLOOD CELL COUNT(AUTO) 4.22 MIL/uL (4.2-6.2)
[2023-12-16 08:24] LABS: ERYTHROCYTE SEDIMENTATION RATE 73 MM/HR (0-15); WHITE BLOOD COUNT (AUTO) 17.6 K/uL (4.8-10.8)
[2023-12-16] MEDS: DOXYCYCLINE HYCLATE 100 MG CAPSULE PO SCH ×2 (08:51→21:12)
[2023-12-16] MEDS: ASPIRIN 81 MG TAB.CHEW PO SCH (08:51)
[2023-12-16] MEDS: PIPERACILLIN/TAZOBACTAM 2.25 GM in D5W 50 ML IV SCH ×3 (14:06→23:15)
[2023-12-16] MEDS: NACL 0.9% 1,000 ML IV SCH ×2 (15:30→23:17)
[2023-12-16] MEDS: METOPROLOL TARTRATE 50 MG TABLET PO SCH (21:13)
[2023-12-17] VITALS (12 sets, daily range): BP systolic 104–138; PULSE 54–107; RESP 14–20; TEMP 97.5–99.1; O2SAT 92–100
[2023-12-17 01:07] LABS: BILIRUBIN,URINE NEGATIVE (NEGATIVE); BLOOD, URINE 3+ (NEGATIVE); CLARITY/URINE CLEAR (CLEAR); COLOR,URINE YELLOW (YELLOW); GLUCOSE,URINE NEGATIVE (NEGATIVE); KETONES,URINE NEGATIVE (NEGATIVE); LEUKOCYTE ESTERASE ,URINE NEGATIVE (NEGATIVE); NITRITE, URINE NEGATIVE (NEGATIVE); PROTEIN URINE 1+ (NEGATIVE); UROBILINOGEN,URINE 0.2 (0.2-1.0)
[2023-12-17 02:12] LABS: BACTERIA,URINE RARE /HPF (None Seen)
[2023-12-17] MEDS: IPRATROPIUM/ALBUTEROL SULFATE 3 ML AMPUL.NEB (DUONEB) INH SCH ×6 (03:00→23:54)
[2023-12-17] MEDS: PIPERACILLIN/TAZOBACTAM 2.25 GM in D5W 50 ML IV SCH ×3 (06:08→17:44)
[2023-12-17 07:18] LABS: BASOPHILS % (AUTO) 0.4 % (0.0-2.0); EOSINOPHILS # (AUTO) 0.2 K/uL (0.0-0.4); EOSINOPHILS % (AUTO) 1.4 % (0.0-4.0); HEMATOCRIT 36.3 % (36-54); HEMOGLOBIN 11.9 g/dL (14.0-18.0); LYMPHOCYTES # (AUTO) 1.4 K/uL (1.0-5.5); LYMPHOCYTES % (AUTO) 11.9 % (20.5-51.5); MEAN CORPUSCULAR HEMOGLOBIN 29 pg (27-31); MEAN CORPUSCULAR HGB CONC 33 % (32-36); MEAN CORPUSCULAR VOLUME 89 fL (79.0-98.0); MONOCYTES # (AUTO) 1.4 K/uL (0.0-1.0); MONOCYTES % (AUTO) 11.6 % (1.7-9.3); NEUTROPHILS # (AUTO) 9.1 K/uL (1.8-7.7); NEUTROPHILS % (AUTO) 74.7 % (40.0-70.0); PLATELET COUNT (AUTO) 365 K/uL (130-430); RED BLOOD CELL COUNT(AUTO) 4.08 MIL/uL (4.2-6.2); RED CELL DISTRIBUTION WIDTH 13.6 % (9.0-15.0)
[2023-12-17 07:24] LABS: ANION GAP 8 (5-15); CALCIUM 8.3 mg/dL (8.4-11.0); CARBON DIOXIDE 25 mmol/L (23-29); CHLORIDE 109 mmol/L (98-107); CREATININE 1.34 mg/dL (0.55-1.30); GLUCOSE 121 mg/dL (74-106); POTASSIUM 4.2 mmol/L (3.5-5.1); SODIUM SERUM 142 mmol/L (136-145); UREA NITROGEN, BLOOD 37 mg/dL (8-21)
[2023-12-17 07:38] LABS: WHITE BLOOD COUNT (AUTO) 12.2 K/uL (4.8-10.8)
[2023-12-17 07:39] LABS: ERYTHROCYTE SEDIMENTATION RATE 60 MM/HR (0-15)
[2023-12-17] MEDS: ASPIRIN 81 MG TAB.CHEW PO SCH (09:24)
[2023-12-17] MEDS: DOXYCYCLINE HYCLATE 100 MG CAPSULE PO SCH ×2 (09:25→21:00)
[2023-12-17] MEDS: NACL 0.9% 1,000 ML IV SCH (11:48)
[2023-12-17] MEDS: METOPROLOL TARTRATE 50 MG TABLET PO SCH (21:00)
[2023-12-18] VITALS (13 sets, daily range): BP systolic 105–116; PULSE 80–104; RESP 16–18; TEMP 97–98.9; O2SAT 91–98
[2023-12-18] MEDS: PIPERACILLIN/TAZOBACTAM 2.25 GM in D5W 50 ML IV SCH ×5 (00:01→23:52)
[2023-12-18] MEDS: NACL 0.9% 1,000 ML IV SCH ×3 (00:02→13:44)
[2023-12-18] MEDS: IPRATROPIUM/ALBUTEROL SULFATE 3 ML AMPUL.NEB (DUONEB) INH SCH ×6 (03:26→23:11)
[2023-12-18 05:45] LABS: ERYTHROCYTE SEDIMENTATION RATE 37 MM/HR (0-15)
[2023-12-18 05:50] LABS: BASOPHILS # (AUTO) 0.1 K/uL (0.0-0.2); BASOPHILS % (AUTO) 0.5 % (0.0-2.0); EOSINOPHILS # (AUTO) 0.2 K/uL (0.0-0.4); EOSINOPHILS % (AUTO) 1.5 % (0.0-4.0); HEMATOCRIT 32.6 % (36-54); HEMOGLOBIN 10.8 g/dL (14.0-18.0); LYMPHOCYTES # (AUTO) 1.4 K/uL (1.0-5.5); LYMPHOCYTES % (AUTO) 12.3 % (20.5-51.5); MEAN CORPUSCULAR HEMOGLOBIN 30 pg (27-31); MEAN CORPUSCULAR HGB CONC 33 % (32-36); MEAN CORPUSCULAR VOLUME 89 fL (79.0-98.0); MONOCYTES # (AUTO) 1.2 K/uL (0.0-1.0); MONOCYTES % (AUTO) 10.8 % (1.7-9.3); NEUTROPHILS # (AUTO) 8.5 K/uL (1.8-7.7); NEUTROPHILS % (AUTO) 74.9 % (40.0-70.0); PLATELET COUNT (AUTO) 349 K/uL (130-430); RED BLOOD CELL COUNT(AUTO) 3.66 MIL/uL (4.2-6.2); RED CELL DISTRIBUTION WIDTH 13.8 % (9.0-15.0); WHITE BLOOD COUNT (AUTO) 11.3 K/uL (4.8-10.8)
[2023-12-18 06:07] LABS: ALANINE AMINOTRANSFERASE 81 U/L (12-78); ANION GAP 10 (5-15); ASPARTATE AMINOTRANSFERASE 38 U/L (10-37); CALCIUM 8.2 mg/dL (8.4-11.0); CARBON DIOXIDE 24 mmol/L (23-29); CHLORIDE 114 mmol/L (98-107); CREATININE 1.15 mg/dL (0.55-1.30); GLUCOSE 105 mg/dL (74-106); PHOSPHORUS 3.5 mg/dL (2.7-4.5); POTASSIUM 4.1 mmol/L (3.5-5.1); SODIUM SERUM 148 mmol/L (136-145); TOTAL BILIRUBIN 0.5 mg/dL (0.0-1.0); TOTAL PROTEIN, SERUM 5.9 g/dL (6.4-8.3); UREA NITROGEN, BLOOD 29 mg/dL (8-21)
[2023-12-18] MEDS: DOXYCYCLINE HYCLATE 100 MG CAPSULE PO SCH ×2 (08:38→21:02)
[2023-12-18] MEDS: ASPIRIN 81 MG TAB.CHEW PO SCH (08:38)
[2023-12-18] MEDS: METOPROLOL TARTRATE 50 MG TABLET PO SCH (21:02)
[2023-12-19] VITALS (11 sets, daily range): BP systolic 95–120; PULSE 82–102; RESP 16–19; TEMP 97.5–98.4; O2SAT 92–98
[2023-12-19] MEDS: NACL 0.9% 1,000 ML IV SCH (03:18)
[2023-12-19] MEDS: IPRATROPIUM/ALBUTEROL SULFATE 3 ML AMPUL.NEB (DUONEB) INH SCH ×4 (03:57→15:30)
[2023-12-19] MEDS: PIPERACILLIN/TAZOBACTAM 2.25 GM in D5W 50 ML IV SCH ×2 (05:05→13:13)
[2023-12-19 06:27] LABS: BASOPHILS # (AUTO) 0.1 K/uL (0.0-0.2); BASOPHILS % (AUTO) 0.6 % (0.0-2.0); EOSINOPHILS # (AUTO) 0.3 K/uL (0.0-0.4); EOSINOPHILS % (AUTO) 2.9 % (0.0-4.0); HEMATOCRIT 30.2 % (36-54); HEMOGLOBIN 10.1 g/dL (14.0-18.0); LYMPHOCYTES # (AUTO) 1.3 K/uL (1.0-5.5); LYMPHOCYTES % (AUTO) 12.6 % (20.5-51.5); MEAN CORPUSCULAR HEMOGLOBIN 30 pg (27-31); MEAN CORPUSCULAR HGB CONC 33 % (32-36); MEAN CORPUSCULAR VOLUME 89 fL (79.0-98.0); MONOCYTES # (AUTO) 1.1 K/uL (0.0-1.0); MONOCYTES % (AUTO) 10.8 % (1.7-9.3); NEUTROPHILS # (AUTO) 7.4 K/uL (1.8-7.7); NEUTROPHILS % (AUTO) 73.1 % (40.0-70.0); PLATELET COUNT (AUTO) 319 K/uL (130-430); RED BLOOD CELL COUNT(AUTO) 3.38 MIL/uL (4.2-6.2); RED CELL DISTRIBUTION WIDTH 13.7 % (9.0-15.0); WHITE BLOOD COUNT (AUTO) 10.1 K/uL (4.8-10.8)
[2023-12-19 06:53] LABS: ALANINE AMINOTRANSFERASE 85 U/L (12-78); ALBUMIN 1.8 g/dL (3.4-4.8); ANION GAP 11 (5-15); ASPARTATE AMINOTRANSFERASE 36 U/L (10-37); CALCIUM 7.9 mg/dL (8.4-11.0); CARBON DIOXIDE 24 mmol/L (23-29); CHLORIDE 115 mmol/L (98-107); CREATININE 1.08 mg/dL (0.55-1.30); GLUCOSE 102 mg/dL (74-106); SODIUM SERUM 150 mmol/L (136-145); TOTAL BILIRUBIN 0.6 mg/dL (0.0-1.0); TOTAL PROTEIN, SERUM 5.6 g/dL (6.4-8.3); UREA NITROGEN, BLOOD 22 mg/dL (8-21)
[2023-12-19] MEDS: DOXYCYCLINE HYCLATE 100 MG CAPSULE PO SCH (08:18)
[2023-12-19] MEDS: ASPIRIN 81 MG TAB.CHEW PO SCH (08:18)
[2023-12-19] MEDS ORDERED: D5/0.45 NS 1,000 ML IV SCH (10:00)
== END 2023-12-19 18:00 | DRG 871 ==
LOC: SED 16:48 → STU 20:35 → SMU 12-11 02:42
PROVIDERS: ADMIT Family Medicine; ATTEND Family Medicine
PROC: 05HY33Z Insertion of Infusion Device into Upper Vein, Percutaneous Approach (ICD-10-PCS; principal; 2023-12-13)
PROC: B54MZZA Ultrasonography of Right Upper Extremity Veins, Guidance (ICD-10-PCS; 2023-12-13)
DX: A41.9 Sepsis, unspecified organism (principal); E43 Unspecified severe protein-calorie malnutrition; J96.01 Acute respiratory failure with hypoxia; G93.41 Metabolic encephalopathy; J18.9 Pneumonia, unspecified organism; E87.0 Hyperosmolality and hypernatremia; N17.9 Acute kidney failure, unspecified; Z66 Do not resuscitate; E88.09 Other disorders of plasma-protein metabolism, not elsewhere classified; E78.5 Hyperlipidemia, unspecified; E86.1 Hypovolemia; G25.3 Myoclonus; R74.01 Elevation of levels of liver transaminase levels; R65.20 Severe sepsis without septic shock; E83.51 Hypocalcemia; Z20.822 Contact with and (suspected) exposure to COVID-19; F03.C0 Unspecified dementia, severe, without behavioral disturbance, psychotic disturbance, mood disturbance, and anxiety; D64.9 Anemia, unspecified; Y95 Nosocomial condition; I10 Essential (primary) hypertension; K21.9 Gastro-esophageal reflux disease without esophagitis; Z88.8 Allergy status to other drugs, medicaments and biological substances; Z79.899 Other long term (current) drug therapy
CPT/HCPCS: 36415; 70450-TC; 71045; 71250-TC; 76376; 76770; 80048; 80053; 80076; 80202; 81000; 81001; 81015; 83605; 83735; 84100; 84484; 85007; 85025; 85027; 85610-TC; 85651-TC; 85730-TC; 87040; 87070-TC; 87081; 87086; 87205-TC; 92610-GN; 93005; 94640; 94760; 96365; 96367; 96375; 97110-GP; 97112-GP; 97116-GP; 97530-GP; 99285; G0378; J0692; J0696; J1956; J2060; J2270; J2405; J2543; J3370; J7060

== ENCOUNTER 2023-12-28 21:08 | Inpatient (IN) | payer OTHER ==
[~2023-12-28] VITALS: Ht 180.3 cm; Wt 67.6 kg
[~2023-12-28 21:08] MED LIST changes: +CEFE2FRO IV; +DOXY100C5 PO
[2023-12-28 21:10] VITALS: BP_SYST 98; PULSE 121; RESP 19; TEMP 101.9; O2SAT 96
[2023-12-28] MEDS ORDERED: ALBUTEROL SULFATE 0.083% 2.5 MG/3 ML VIAL.NEB INH ONE (21:25)
[2023-12-28] MEDS ORDERED: IPRATROPIUM BROM 0.5 MG/2.5 ML VIAL.NEB (ATROVENT) INH ONE (21:25)
[2023-12-28] MEDS: ALBUTEROL SULFATE 0.083% 2.5 MG/3 ML VIAL.NEB INH ONE (21:30)
[2023-12-28] MEDS: IPRATROPIUM BROM 0.5 MG/2.5 ML VIAL.NEB (ATROVENT) INH ONE (21:30)
[2023-12-28] MEDS ORDERED: ETOMIDATE 20 MG/ 10 ML VIAL (AMIDATE) ONE (21:54)
[2023-12-28] MEDS ORDERED: VECURONIUM BROMIDE 10 MG/VIAL (NORCURON) ONE (21:54)
[2023-12-28] MEDS ORDERED: PROPOFOL DRIP 100 ML IV ONE (21:56)
[2023-12-28 22:03] LABS: BASOPHILS # (AUTO) 0.1 K/uL (0.0-0.2); BASOPHILS % (AUTO) 0.4 % (0.0-2.0); EOSINOPHILS % (AUTO) 0.3 % (0.0-4.0); HEMATOCRIT 36.8 % (36-54); HEMOGLOBIN 11.8 g/dL (14.0-18.0); LYMPHOCYTES # (AUTO) 0.9 K/uL (1.0-5.5); LYMPHOCYTES % (AUTO) 6.1 % (20.5-51.5); MEAN CORPUSCULAR HEMOGLOBIN 29 pg (27-31); MEAN CORPUSCULAR HGB CONC 32 % (32-36); MEAN CORPUSCULAR VOLUME 91 fL (79.0-98.0); MONOCYTES # (AUTO) 0.9 K/uL (0.0-1.0); MONOCYTES % (AUTO) 6.6 % (1.7-9.3); NEUTROPHILS # (AUTO) 12.5 K/uL (1.8-7.7); NEUTROPHILS % (AUTO) 86.6 % (40.0-70.0); PLATELET COUNT (AUTO) 284 K/uL (130-430); RED BLOOD CELL COUNT(AUTO) 4.03 MIL/uL (4.2-6.2); RED CELL DISTRIBUTION WIDTH 15.2 % (9.0-15.0); WHITE BLOOD COUNT (AUTO) 14.4 K/uL (4.8-10.8)
[2023-12-28 22:10] LABS: INR 1.2 (0.80-1.20); PROTHROMBIN TIME 12.7 SECS (9.5-12.5)
[2023-12-28] MEDS: NALOXONE HCL 2 MG/2 ML SYR IVP ONE (22:15)
[2023-12-28] MEDS: NS 1000 ML IV.SOLN IV ONE (22:15)
[2023-12-28] MEDS: VECURONIUM BROMIDE 10 MG/VIAL (NORCURON) IVP ONE (22:16)
[2023-12-28] MEDS: ETOMIDATE 20 MG/ 10 ML VIAL (AMIDATE) IVP ONE (22:16)
[2023-12-28] MEDS: PROPOFOL DRIP 100 ML IV ONE (22:18)
[2023-12-28 22:19] LABS: ALANINE AMINOTRANSFERASE 34 U/L (12-78); ALBUMIN 2.3 g/dL (3.4-4.8); ASPARTATE AMINOTRANSFERASE 26 U/L (10-37); BILIRUBIN,DIRECT 0.6 mg/dL (0.0-0.3); CALCIUM 8.7 mg/dL (8.4-11.0); CARBON DIOXIDE 22 mmol/L (23-29); CREATININE 1.44 mg/dL (0.55-1.30); GLUCOSE 126 mg/dL (74-106); POTASSIUM 3.7 mmol/L (3.5-5.1); SODIUM SERUM 156 mmol/L (136-145); TOTAL BILIRUBIN 1.3 mg/dL (0.0-1.0); TOTAL PROTEIN, SERUM 6.3 g/dL (6.4-8.3); UREA NITROGEN, BLOOD 40 mg/dL (8-21)
[2023-12-28 22:25] LABS: ANION GAP 18 (5-15); CHLORIDE 116 mmol/L (98-107)
[2023-12-28] MEDS ORDERED: IPRA4AER INH (22:38)
[2023-12-28] MEDS ORDERED: MULT-1117 PO (22:38)
[2023-12-28] MEDS ORDERED: SENN8.6T19 PO (22:38)
[2023-12-28] MEDS ORDERED: LOSA-413 PO (22:38)
[2023-12-28] MEDS ORDERED: CYAN100010 PO (22:38)
[2023-12-28] MEDS ORDERED: BISA10SU61 RC (22:38)
[2023-12-28] MEDS ORDERED: THIA50TA10 PO (22:38)
[2023-12-28] MEDS ORDERED: MOM PO (22:38)
[2023-12-28] MEDS ORDERED: L.RH1CAP PO (22:38)
[2023-12-28] MEDS ORDERED: ACET325T PO (22:38)
[2023-12-28] MEDS ORDERED: ZINC100T2 PO (22:38)
[2023-12-28] MEDS ORDERED: FOLI-43 PO (22:38)
[2023-12-28] MEDS ORDERED: ACET-73 PO (22:38)
[2023-12-28] MEDS ORDERED: PIPERACILLIN/TAZOBACTAM 3.375 GM/VIAL (ZOSYN) IV ONE (23:04)
[2023-12-28] MEDS: fentaNYL CITRATE/PF 100 MCG/2 ML AMP IVP ONE (23:11)
[2023-12-28] MEDS: ACETAMINOPHEN 650 MG SUPP.RECT RC ONE (23:12)
[2023-12-28] MEDS: PIPERACILLIN/TAZO 3.375 GM in NS 50 ML IV ONE (23:12)
[2023-12-28 23:30] LABS: BILIRUBIN,URINE 2+ (NEGATIVE); BLOOD, URINE 3+ (NEGATIVE); CLARITY/URINE CLOUDY (CLEAR); COLOR,URINE BROWN (YELLOW); GLUCOSE,URINE NEGATIVE (NEGATIVE); KETONES,URINE 1+ (NEGATIVE); LEUKOCYTE ESTERASE ,URINE TRACE (NEGATIVE); NITRITE, URINE POSITIVE (NEGATIVE); PH,URINE 5.5 (5.0-8.0); PROTEIN URINE 2+ (NEGATIVE)
[2023-12-28 23:50] LABS: RBC,URINE >100 /HPF (0-3)
[2023-12-28 23:51] LABS: BACTERIA,URINE MODERATE /HPF (None Seen); COARSE GRANULAR CASTS,URINE 0-10 /LPF (None Seen); MUCUS,URINE 2+ /LPF (None Seen); URIC ACID CRYSTALS,URINE 0-10 /HPF (None Seen); URINE AMORPHOUS URATE 3+ /HPF (None Seen)
[2023-12-29] VITALS (19 sets, daily range): BP systolic 72–146; PULSE 70–110; RESP 16–17; TEMP 97.1–97.3; O2SAT 90–99
[2023-12-29] MEDS ORDERED: ONDANSETRON HCL 4 MG/2 ML VIAL IVP PRN
[2023-12-29] MEDS ORDERED: ACETAMINOPHEN 325 MG TABLET PO PRN
[2023-12-29] MEDS ORDERED: MORPHINE 2 MG/ML INJ. SYRINGE IVP PRN
[2023-12-29] MEDS ORDERED: PIPERACILLIN/TAZOBACTAM 3.375 GM/VIAL (ZOSYN) IV ONE ×2 (01:39→06:42)
[2023-12-29] MEDS: PIPERACILLIN/TAZO 3.375/DEX-IS 50 ML IV SCH (01:40)
[2023-12-29 01:48] LABS: INFLUENZA TYPE A Negative (NEGATIVE); INFLUENZA TYPE B NEGATIVE (NEGATIVE)
[2023-12-29] MEDS: D5/0.45 NS 1,000 ML IV ONE (01:50)
[2023-12-29 01:51] LABS: COVID19 ANTIGEN SOFIA FIA POSITIVE (NEGATIVE)
[2023-12-29 03:43] LABS: BLOOD GAS HCO3 20.5 mmol/L (21.0-27.0); BLOOD GAS PCO2 39.3 mmHg (32.0-45.0); BLOOD GAS PH 7.336 (7.350-7.450); BLOOD GAS PO2 325.5 mmHg (75.0-100.0)
[2023-12-29 03:44] LABS: ABG O2 SAT% ESTIMATE 99.7 % (94.0-100.0); ALLEN'S TEST POSITIVE (P); BLOOD GAS BASE EXCESS -4.8 mmol/L (-3.0-3.0)
[2023-12-29 08:00] LABS: BASOPHILS % (AUTO) 0.2 % (0.0-2.0); EOSINOPHILS # (AUTO) 0.3 K/uL (0.0-0.4); EOSINOPHILS % (AUTO) 1.7 % (0.0-4.0); HEMATOCRIT 32.5 % (36-54); HEMOGLOBIN 10.1 g/dL (14.0-18.0); LYMPHOCYTES # (AUTO) 1.3 K/uL (1.0-5.5); MEAN CORPUSCULAR HEMOGLOBIN 29 pg (27-31); MEAN CORPUSCULAR HGB CONC 31 % (32-36); MEAN CORPUSCULAR VOLUME 92 fL (79.0-98.0); MONOCYTES # (AUTO) 0.8 K/uL (0.0-1.0); MONOCYTES % (AUTO) 5.5 % (1.7-9.3); NEUTROPHILS # (AUTO) 12.5 K/uL (1.8-7.7); NEUTROPHILS % (AUTO) 83.6 % (40.0-70.0); PLATELET COUNT (AUTO) 219 K/uL (130-430); RED BLOOD CELL COUNT(AUTO) 3.53 MIL/uL (4.2-6.2); RED CELL DISTRIBUTION WIDTH 15.1 % (9.0-15.0); WHITE BLOOD COUNT (AUTO) 14.9 K/uL (4.8-10.8)
[2023-12-29 08:21] LABS: ALANINE AMINOTRANSFERASE 33 U/L (12-78); ALBUMIN 1.9 g/dL (3.4-4.8); ANION GAP 14 (5-15); ASPARTATE AMINOTRANSFERASE 24 U/L (10-37); CALCIUM 7.8 mg/dL (8.4-11.0); CARBON DIOXIDE 23 mmol/L (23-29); CREATININE 1.35 mg/dL (0.55-1.30); GLUCOSE 180 mg/dL (74-106); POTASSIUM 3.7 mmol/L (3.5-5.1); TOTAL BILIRUBIN 1.2 mg/dL (0.0-1.0); TOTAL PROTEIN, SERUM 5.4 g/dL (6.4-8.3); UREA NITROGEN, BLOOD 31 mg/dL (8-21)
[2023-12-29] MEDS: ENOXAPARIN SODIUM 40 MG/0.4 ML SYRINGE SUBCUT SCH (08:22)
[2023-12-29 08:25] LABS: CHLORIDE 132 mmol/L (98-107); SODIUM SERUM 169 mmol/L (136-145)
[2023-12-29 09:18] LABS: ANION GAP 11 (5-15); CALCIUM 7.9 mg/dL (8.4-11.0); CARBON DIOXIDE 23 mmol/L (23-29); CREATININE 1.28 mg/dL (0.55-1.30); GLUCOSE 185 mg/dL (74-106); POTASSIUM 3.8 mmol/L (3.5-5.1); SODIUM SERUM 157 mmol/L (136-145); UREA NITROGEN, BLOOD 32 mg/dL (8-21)
[2023-12-29 09:32] LABS: CHLORIDE 123 mmol/L (98-107)
[2023-12-29] MEDS: NACL 0.9% 1,000 ML IV ONE (11:20)
[2023-12-29] MEDS ORDERED: NOREPINEPHRINE 4 MG/4 ML VIAL IV ONE (15:20)
[2023-12-29] MEDS ORDERED: PROPOFOL DRIP 100 ML IV ONE (15:57)
[2023-12-29] MEDS ORDERED: PANTOPRAZOLE SODIUM 40 MG/VIAL (PROTONIX) IVP ONE (16:00)
[2023-12-29] MEDS ORDERED: iohexoL 350 mgI/mL, 100 ML INFUS..BTL IV ONE (17:49)
[2023-12-30] VITALS (32 sets, daily range): BP systolic 90–135; PULSE 55–101; RESP 16–21; TEMP 96.4–97.9; O2SAT 96–99
[2023-12-30] MEDS: 0.45% NACL 1,000 ML IV SCH (00:15)
[2023-12-30] MEDS ORDERED: PHENYLEPHRINE HCL 50 MG in NS 245 ML IV PRN (03:00)
[2023-12-30] MEDS: PROPOFOL DRIP 100 ML IV PRN (04:47)
[2023-12-30 05:44] LABS: BASOPHILS % (AUTO) 0.3 % (0.0-2.0); EOSINOPHILS # (AUTO) 0.7 K/uL (0.0-0.4); EOSINOPHILS % (AUTO) 6.1 % (0.0-4.0); HEMATOCRIT 27.1 % (36-54); HEMOGLOBIN 8.9 g/dL (14.0-18.0); LYMPHOCYTES # (AUTO) 1.1 K/uL (1.0-5.5); MEAN CORPUSCULAR HEMOGLOBIN 29 pg (27-31); MEAN CORPUSCULAR HGB CONC 33 % (32-36); MEAN CORPUSCULAR VOLUME 90 fL (79.0-98.0); MONOCYTES # (AUTO) 0.8 K/uL (0.0-1.0); MONOCYTES % (AUTO) 6.9 % (1.7-9.3); NEUTROPHILS # (AUTO) 8.8 K/uL (1.8-7.7); NEUTROPHILS % (AUTO) 76.7 % (40.0-70.0); PLATELET COUNT (AUTO) 182 K/uL (130-430); RED BLOOD CELL COUNT(AUTO) 3.02 MIL/uL (4.2-6.2); RED CELL DISTRIBUTION WIDTH 14.9 % (9.0-15.0); WHITE BLOOD COUNT (AUTO) 11.4 K/uL (4.8-10.8)
[2023-12-30 07:39] LABS: SODIUM SERUM 155 mmol/L (136-145)
[2023-12-30 08:20] LABS: ALANINE AMINOTRANSFERASE 29 U/L (12-78); ALBUMIN 1.8 g/dL (3.4-4.8); ANION GAP 11 (5-15); ASPARTATE AMINOTRANSFERASE 18 U/L (10-37); CARBON DIOXIDE 23 mmol/L (23-29); GLUCOSE 116 mg/dL (74-106); POTASSIUM 3.2 mmol/L (3.5-5.1); TOTAL PROTEIN, SERUM 5.1 g/dL (6.4-8.3); UREA NITROGEN, BLOOD 27 mg/dL (8-21)
[2023-12-30] MEDS: PANTOPRAZOLE SODIUM 40 MG/VIAL (PROTONIX) IVP SCH (08:49)
[2023-12-30 09:03] LABS: TOTAL BILIRUBIN 0.5 mg/dL (0.0-1.0)
[2023-12-30 09:05] LABS: CHLORIDE 121 mmol/L (98-107)
[2023-12-30] MEDS ORDERED: POTASSIUM CHLORIDE 40 MEQ in 0.45% NS 250 ML IV ONE (10:30)
[2023-12-30] MEDS: POTASSIUM CHLORIDE 20 mEq in 100 mL (PREMIX) 100 ML x 2 doses IV SCH (11:09)
[2023-12-30] MEDS: methylPREDNISolone SOD SUCC/PF 62.5 MG/ML VIAL IVP ONE (12:19)
[2023-12-30] MEDS: methylPREDNISolone SOD SUCC/PF 62.5 MG/ML VIAL IVP SCH (15:10)
[2023-12-30] MEDS: NOREPINEPHRINE BITARTRATE 4 MG in D5W 246 ML IV PRN (15:21)
[2023-12-31] VITALS (31 sets, daily range): BP systolic 106–141; PULSE 46–68; RESP 11–21; TEMP 97.1–97.7; O2SAT 96–100
[2023-12-31 05:23] LABS: HEMATOCRIT 26.5 % (36-54); HEMOGLOBIN 8.8 g/dL (14.0-18.0); LYMPHOCYTES # (AUTO) 0.4 K/uL (1.0-5.5); MEAN CORPUSCULAR HEMOGLOBIN 29 pg (27-31); MEAN CORPUSCULAR HGB CONC 33 % (32-36); MEAN CORPUSCULAR VOLUME 89 fL (79.0-98.0); MONOCYTES # (AUTO) 0.2 K/uL (0.0-1.0); PLATELET COUNT (AUTO) 202 K/uL (130-430); RED BLOOD CELL COUNT(AUTO) 2.99 MIL/uL (4.2-6.2); WHITE BLOOD COUNT (AUTO) 8.6 K/uL (4.8-10.8)
[2023-12-31 05:47] LABS: ALANINE AMINOTRANSFERASE 31 U/L (12-78); ALBUMIN 1.8 g/dL (3.4-4.8); ANION GAP 10 (5-15); ASPARTATE AMINOTRANSFERASE 17 U/L (10-37); CALCIUM 7.9 mg/dL (8.4-11.0); CARBON DIOXIDE 22 mmol/L (23-29); CHLORIDE 116 mmol/L (98-107); CREATININE 0.98 mg/dL (0.55-1.30); GLUCOSE 199 mg/dL (74-106); POTASSIUM 3.5 mmol/L (3.5-5.1); SODIUM SERUM 148 mmol/L (136-145); TOTAL BILIRUBIN 0.4 mg/dL (0.0-1.0); TOTAL PROTEIN, SERUM 5.6 g/dL (6.4-8.3); UREA NITROGEN, BLOOD 21 mg/dL (8-21)
[2024-01-01] VITALS (29 sets, daily range): BP systolic 104–141; PULSE 45–76; RESP 14–21; TEMP 97.6–98.3; O2SAT 96–99
[2024-01-01 05:35] LABS: HEMATOCRIT 23.7 % (36-54); LYMPHOCYTES # (AUTO) 0.5 K/uL (1.0-5.5); LYMPHOCYTES % (AUTO) 5.9 % (20.5-51.5); MEAN CORPUSCULAR HEMOGLOBIN 30 pg (27-31); MEAN CORPUSCULAR HGB CONC 34 % (32-36); MEAN CORPUSCULAR VOLUME 88 fL (79.0-98.0); MONOCYTES # (AUTO) 0.5 K/uL (0.0-1.0); MONOCYTES % (AUTO) 5.3 % (1.7-9.3); NEUTROPHILS # (AUTO) 7.9 K/uL (1.8-7.7); NEUTROPHILS % (AUTO) 88.8 % (40.0-70.0); PLATELET COUNT (AUTO) 181 K/uL (130-430); RED BLOOD CELL COUNT(AUTO) 2.68 MIL/uL (4.2-6.2); RED CELL DISTRIBUTION WIDTH 14.5 % (9.0-15.0); WHITE BLOOD COUNT (AUTO) 8.9 K/uL (4.8-10.8)
[2024-01-01 05:47] LABS: ALANINE AMINOTRANSFERASE 27 U/L (12-78); ALBUMIN 1.6 g/dL (3.4-4.8); ANION GAP 10 (5-15); ASPARTATE AMINOTRANSFERASE 17 U/L (10-37); CALCIUM 7.5 mg/dL (8.4-11.0); CARBON DIOXIDE 24 mmol/L (23-29); CHLORIDE 113 mmol/L (98-107); CREATININE 0.87 mg/dL (0.55-1.30); GLUCOSE 148 mg/dL (74-106); POTASSIUM 3.6 mmol/L (3.5-5.1); SODIUM SERUM 147 mmol/L (136-145); TOTAL BILIRUBIN 0.3 mg/dL (0.0-1.0); UREA NITROGEN, BLOOD 27 mg/dL (8-21)
[2024-01-01] MEDS: BALSAM PERU/CASTOR OIL 56.7 GM OINT...G. TP ONE (15:15)
[2024-01-02] VITALS (14 sets, daily range): BP systolic 114–128; PULSE 47–64; RESP 13–22; TEMP 98–98.2; O2SAT 2–99
[2024-01-02 05:14] LABS: BASOPHILS % (AUTO) 0.1 % (0.0-2.0); EOSINOPHILS % (AUTO) 0.3 % (0.0-4.0); HEMATOCRIT 26.9 % (36-54); HEMOGLOBIN 8.8 g/dL (14.0-18.0); LYMPHOCYTES # (AUTO) 1.7 K/uL (1.0-5.5); LYMPHOCYTES % (AUTO) 21.1 % (20.5-51.5); MEAN CORPUSCULAR HEMOGLOBIN 29 pg (27-31); MEAN CORPUSCULAR HGB CONC 33 % (32-36); MEAN CORPUSCULAR VOLUME 89 fL (79.0-98.0); MONOCYTES # (AUTO) 0.7 K/uL (0.0-1.0); MONOCYTES % (AUTO) 9.1 % (1.7-9.3); NEUTROPHILS # (AUTO) 5.6 K/uL (1.8-7.7); NEUTROPHILS % (AUTO) 69.4 % (40.0-70.0); PLATELET COUNT (AUTO) 182 K/uL (130-430); RED BLOOD CELL COUNT(AUTO) 3.01 MIL/uL (4.2-6.2); RED CELL DISTRIBUTION WIDTH 14.6 % (9.0-15.0)
[2024-01-02 05:42] LABS: ALANINE AMINOTRANSFERASE 46 U/L (12-78); ALBUMIN 1.7 g/dL (3.4-4.8); ANION GAP 10 (5-15); ASPARTATE AMINOTRANSFERASE 31 U/L (10-37); CALCIUM 7.8 mg/dL (8.4-11.0); CARBON DIOXIDE 23 mmol/L (23-29); CHLORIDE 111 mmol/L (98-107); GLUCOSE 89 mg/dL (74-106); PHOSPHORUS 2.5 mg/dL (2.7-4.5); POTASSIUM 3.6 mmol/L (3.5-5.1); SODIUM SERUM 144 mmol/L (136-145); TOTAL BILIRUBIN 0.4 mg/dL (0.0-1.0); UREA NITROGEN, BLOOD 26 mg/dL (8-21)
[2024-01-02] MEDS: BALSAM PERU/CASTOR OIL 56.7 GM OINT...G. TP SCH (09:45)
[2024-01-02] MEDS: CALCIUM GLUCONATE 2 GM in NS 100 ML IV ONE (11:11)
[2024-01-02] MEDS: NA PHOS 15 MM in NS 250 ML IV ONE (12:41)
[2024-01-02] MEDS: DEXAMETHASONE SOD PHOSPHATE 10 MG/ML VIAL IVP SCH (18:42)
[2024-01-03] VITALS: BP_SYST 128; PULSE 62; RESP 2; TEMP 98; O2SAT 99
[2024-01-03 05:01] LABS: EOSINOPHILS % (AUTO) 0.1 % (0.0-4.0); HEMOGLOBIN 9.7 g/dL (14.0-18.0); LYMPHOCYTES # (AUTO) 0.9 K/uL (1.0-5.5); LYMPHOCYTES % (AUTO) 10.7 % (20.5-51.5); MEAN CORPUSCULAR HEMOGLOBIN 29 pg (27-31); MEAN CORPUSCULAR HGB CONC 34 % (32-36); MONOCYTES # (AUTO) 0.5 K/uL (0.0-1.0); MONOCYTES % (AUTO) 6.6 % (1.7-9.3); NEUTROPHILS # (AUTO) 6.6 K/uL (1.8-7.7); NEUTROPHILS % (AUTO) 82.6 % (40.0-70.0); PLATELET COUNT (AUTO) 240 K/uL (130-430); RED BLOOD CELL COUNT(AUTO) 3.32 MIL/uL (4.2-6.2); RED CELL DISTRIBUTION WIDTH 14.2 % (9.0-15.0); WHITE BLOOD COUNT (AUTO) 7.9 K/uL (4.8-10.8)
[2024-01-03 05:10] LABS: ALANINE AMINOTRANSFERASE 72 U/L (12-78); ALBUMIN 1.9 g/dL (3.4-4.8); ANION GAP 9 (5-15); ASPARTATE AMINOTRANSFERASE 34 U/L (10-37); CALCIUM 7.9 mg/dL (8.4-11.0); CARBON DIOXIDE 26 mmol/L (23-29); CHLORIDE 109 mmol/L (98-107); CREATININE 0.82 mg/dL (0.55-1.30); GLUCOSE 116 mg/dL (74-106); POTASSIUM 3.7 mmol/L (3.5-5.1); SODIUM SERUM 144 mmol/L (136-145); TOTAL BILIRUBIN 0.6 mg/dL (0.0-1.0); TOTAL PROTEIN, SERUM 5.2 g/dL (6.4-8.3); UREA NITROGEN, BLOOD 22 mg/dL (8-21)
[2024-01-03 06:10] LABS: ERYTHROCYTE SEDIMENTATION RATE 31 MM/HR (0-15)
[2024-01-03 08:10] LABS: MEAN CORPUSCULAR VOLUME 87 fL (79.0-98.0)
[2024-01-03 08:25] VITALS: BP_SYST 131; PULSE 69; RESP 16; TEMP 98.6; O2SAT 97
[2024-01-03 16:45] VITALS: BP_SYST 144; PULSE 65; RESP 16; TEMP 97.1; O2SAT 97
[2024-01-03 19:00] VITALS: BP_SYST 143; PULSE 66; RESP 16; TEMP 97.4; O2SAT 96
[2024-01-03 20:00] VITALS: BP_SYST 143; PULSE 66; RESP 16; TEMP 97.4; O2SAT 96
[2024-01-04] VITALS: BP_SYST 140; PULSE 62; RESP 16; TEMP 98.4; O2SAT 96
[2024-01-04 05:49] LABS: EOSINOPHILS # (AUTO) 0.1 K/uL (0.0-0.4); EOSINOPHILS % (AUTO) 0.8 % (0.0-4.0); HEMATOCRIT 30.3 % (36-54); LYMPHOCYTES # (AUTO) 1.5 K/uL (1.0-5.5); LYMPHOCYTES % (AUTO) 17.7 % (20.5-51.5); MEAN CORPUSCULAR HEMOGLOBIN 29 pg (27-31); MEAN CORPUSCULAR HGB CONC 33 % (32-36); MEAN CORPUSCULAR VOLUME 88 fL (79.0-98.0); MONOCYTES # (AUTO) 0.8 K/uL (0.0-1.0); MONOCYTES % (AUTO) 8.9 % (1.7-9.3); NEUTROPHILS # (AUTO) 6.2 K/uL (1.8-7.7); NEUTROPHILS % (AUTO) 72.6 % (40.0-70.0); PLATELET COUNT (AUTO) 268 K/uL (130-430); RED BLOOD CELL COUNT(AUTO) 3.46 MIL/uL (4.2-6.2); RED CELL DISTRIBUTION WIDTH 14.7 % (9.0-15.0); WHITE BLOOD COUNT (AUTO) 8.5 K/uL (4.8-10.8)
[2024-01-04 06:19] LABS: ALANINE AMINOTRANSFERASE 65 U/L (12-78); ANION GAP 11 (5-15); ASPARTATE AMINOTRANSFERASE 25 U/L (10-37); CALCIUM 7.9 mg/dL (8.4-11.0); CARBON DIOXIDE 26 mmol/L (23-29); CHLORIDE 109 mmol/L (98-107); CREATININE 0.91 mg/dL (0.55-1.30); GLUCOSE 94 mg/dL (74-106); POTASSIUM 3.2 mmol/L (3.5-5.1); SODIUM SERUM 146 mmol/L (136-145); TOTAL BILIRUBIN 0.5 mg/dL (0.0-1.0); TOTAL PROTEIN, SERUM 5.4 g/dL (6.4-8.3); UREA NITROGEN, BLOOD 21 mg/dL (8-21)
[2024-01-04 08:00] VITALS: O2SAT 96
[2024-01-04 11:30] VITALS: BP_SYST 118; PULSE 62; RESP 18; TEMP 98.2; O2SAT 97
[2024-01-04 11:58] LABS: BASOPHILS % (AUTO) 0.1 % (0.0-2.0); EOSINOPHILS # (AUTO) 0.2 K/uL (0.0-0.4); EOSINOPHILS % (AUTO) 1.8 % (0.0-4.0); HEMOGLOBIN 10.1 g/dL (14.0-18.0); LYMPHOCYTES # (AUTO) 1.7 K/uL (1.0-5.5); LYMPHOCYTES % (AUTO) 19.5 % (20.5-51.5); MEAN CORPUSCULAR HEMOGLOBIN 30 pg (27-31); MEAN CORPUSCULAR HGB CONC 34 % (32-36); MEAN CORPUSCULAR VOLUME 89 fL (79.0-98.0); MONOCYTES # (AUTO) 0.9 K/uL (0.0-1.0); MONOCYTES % (AUTO) 10.4 % (1.7-9.3); NEUTROPHILS % (AUTO) 68.2 % (40.0-70.0); PLATELET COUNT (AUTO) 260 K/uL (130-430); RED BLOOD CELL COUNT(AUTO) 3.39 MIL/uL (4.2-6.2); RED CELL DISTRIBUTION WIDTH 14.8 % (9.0-15.0); WHITE BLOOD COUNT (AUTO) 8.8 K/uL (4.8-10.8)
[2024-01-04 17:28] VITALS: BP_SYST 120; PULSE 91; RESP 18; TEMP 98.4; O2SAT 97
[2024-01-04 17:44] VITALS: BP_SYST 120; PULSE 91; O2SAT 97
[2024-01-04 20:15] VITALS: BP_SYST 128; PULSE 72; RESP 16; TEMP 98; O2SAT 97
[2024-01-05] VITALS: BP_SYST 123; RESP 16; TEMP 99; O2SAT 97
[2024-01-05 07:49] LABS: BASOPHILS % (AUTO) 0.1 % (0.0-2.0); EOSINOPHILS # (AUTO) 0.1 K/uL (0.0-0.4); EOSINOPHILS % (AUTO) 1.1 % (0.0-4.0); HEMATOCRIT 28.9 % (36-54); HEMOGLOBIN 9.7 g/dL (14.0-18.0); LYMPHOCYTES # (AUTO) 1.5 K/uL (1.0-5.5); MEAN CORPUSCULAR HEMOGLOBIN 30 pg (27-31); MEAN CORPUSCULAR HGB CONC 34 % (32-36); MEAN CORPUSCULAR VOLUME 89 fL (79.0-98.0); MONOCYTES # (AUTO) 0.8 K/uL (0.0-1.0); MONOCYTES % (AUTO) 11.1 % (1.7-9.3); NEUTROPHILS # (AUTO) 5.1 K/uL (1.8-7.7); NEUTROPHILS % (AUTO) 67.7 % (40.0-70.0); PLATELET COUNT (AUTO) 279 K/uL (130-430); RED BLOOD CELL COUNT(AUTO) 3.25 MIL/uL (4.2-6.2); WHITE BLOOD COUNT (AUTO) 7.5 K/uL (4.8-10.8)
[2024-01-05 08:00] VITALS: O2SAT 95
[2024-01-05 08:04] LABS: ALANINE AMINOTRANSFERASE 49 U/L (12-78); ANION GAP 11 (5-15); ASPARTATE AMINOTRANSFERASE 21 U/L (10-37); CALCIUM 7.9 mg/dL (8.4-11.0); CARBON DIOXIDE 25 mmol/L (23-29); CHLORIDE 110 mmol/L (98-107); CREATININE 0.97 mg/dL (0.55-1.30); GLUCOSE 84 mg/dL (74-106); POTASSIUM 3.1 mmol/L (3.5-5.1); SODIUM SERUM 146 mmol/L (136-145); TOTAL BILIRUBIN 0.6 mg/dL (0.0-1.0); TOTAL PROTEIN, SERUM 5.3 g/dL (6.4-8.3); UREA NITROGEN, BLOOD 18 mg/dL (8-21)
[2024-01-05 08:30] VITALS: BP_SYST 135; PULSE 67; RESP 18; TEMP 99; O2SAT 95
[2024-01-05 10:42] LABS: INR 1.2 (0.80-1.20); PROTHROMBIN TIME 12.6 SECS (9.5-12.5)
[2024-01-05] MEDS: KCL 40 mEq in 100 mL (PREMIX) 100 ML IV ONE (11:36)
[2024-01-05 12:31] VITALS: BP_SYST 137; PULSE 68; RESP 18; TEMP 97.7; O2SAT 96
[2024-01-05 16:13] LABS: BLOOD, URINE 3+ (NEGATIVE); COLOR,URINE YELLOW (YELLOW); GLUCOSE,URINE NEGATIVE (NEGATIVE); KETONES,URINE 1+ (NEGATIVE); LEUKOCYTE ESTERASE ,URINE TRACE (NEGATIVE); NITRITE, URINE NEGATIVE (NEGATIVE); PROTEIN URINE 1+ (NEGATIVE)
[2024-01-05 16:20] LABS: CLARITY/URINE HAZY (CLEAR)
[2024-01-05 16:21] LABS: BILIRUBIN,URINE 1+ (NEGATIVE); RBC,URINE 50-80 /HPF (0-3); WBC,URINE 0-3 /HPF (0-3)
[2024-01-05 16:22] LABS: BACTERIA,URINE RARE /HPF (None Seen); MUCUS,URINE None Seen /LPF (None Seen)
[2024-01-05 16:42] VITALS: BP_SYST 145; PULSE 61; RESP 18; TEMP 97.4; O2SAT 97
[2024-01-05 20:08] VITALS: BP_SYST 146; PULSE 60; RESP 19; TEMP 97.2; O2SAT 93
[2024-01-06] VITALS (7 sets, daily range): BP systolic 134–147; PULSE 58–67; RESP 16–20; TEMP 96.1–98.4; O2SAT 94–98
[2024-01-06 06:38] LABS: BASOPHILS % (AUTO) 0.1 % (0.0-2.0); EOSINOPHILS # (AUTO) 0.1 K/uL (0.0-0.4); EOSINOPHILS % (AUTO) 0.8 % (0.0-4.0); HEMATOCRIT 31.3 % (36-54); HEMOGLOBIN 10.4 g/dL (14.0-18.0); LYMPHOCYTES # (AUTO) 1.2 K/uL (1.0-5.5); LYMPHOCYTES % (AUTO) 16.6 % (20.5-51.5); MEAN CORPUSCULAR HEMOGLOBIN 29 pg (27-31); MEAN CORPUSCULAR HGB CONC 33 % (32-36); MEAN CORPUSCULAR VOLUME 89 fL (79.0-98.0); MONOCYTES # (AUTO) 0.6 K/uL (0.0-1.0); MONOCYTES % (AUTO) 8.9 % (1.7-9.3); NEUTROPHILS # (AUTO) 5.2 K/uL (1.8-7.7); NEUTROPHILS % (AUTO) 73.6 % (40.0-70.0); PLATELET COUNT (AUTO) 303 K/uL (130-430); RED BLOOD CELL COUNT(AUTO) 3.52 MIL/uL (4.2-6.2); RED CELL DISTRIBUTION WIDTH 15.3 % (9.0-15.0); WHITE BLOOD COUNT (AUTO) 7.1 K/uL (4.8-10.8)
[2024-01-06 06:48] LABS: INR 1.2 (0.80-1.20); PROTHROMBIN TIME 12.2 SECS (9.5-12.5)
[2024-01-06 06:55] LABS: ALANINE AMINOTRANSFERASE 53 U/L (12-78); ALBUMIN 2.3 g/dL (3.4-4.8); ANION GAP 12 (5-15); ASPARTATE AMINOTRANSFERASE 24 U/L (10-37); CALCIUM 8.3 mg/dL (8.4-11.0); CARBON DIOXIDE 27 mmol/L (23-29); CHLORIDE 108 mmol/L (98-107); CREATININE 0.99 mg/dL (0.55-1.30); GLUCOSE 87 mg/dL (74-106); POTASSIUM 3.6 mmol/L (3.5-5.1); SODIUM SERUM 147 mmol/L (136-145); TOTAL BILIRUBIN 0.7 mg/dL (0.0-1.0); TOTAL PROTEIN, SERUM 5.8 g/dL (6.4-8.3); UREA NITROGEN, BLOOD 16 mg/dL (8-21)
[2024-01-06] MEDS: KCL 10 mEq in D5/0.45NS 1000mL 1,000 ML IV SCH (10:08)
[2024-01-06] MEDS ORDERED: MIDAZOLAM HCL 5 MG/5 ML VIAL ONE (14:30)
[2024-01-06] MEDS ORDERED: fentaNYL CITRATE/PF 100 MCG/2 ML AMP ONE (14:30)
[2024-01-07] VITALS (8 sets, daily range): BP systolic 134–154; PULSE 53–89; RESP 16–20; TEMP 96.8–98.3; O2SAT 93–98
[2024-01-07] MEDS: ENOXAPARIN SODIUM 30 MG/0.3 ML SYRINGE SUBCUT SCH (09:00)
[2024-01-07] MEDS ORDERED: CEFAZOLIN 1 GM IVPB PREMIX 50 ML IV ONE (13:00)
[2024-01-07] MEDS: FLUCONAZOLE 200 mg/ NS 100 ML IV SCH (14:56)
[2024-01-08 00:21] VITALS: BP_SYST 135; PULSE 64; RESP 17; TEMP 96.8; O2SAT 100
[2024-01-08 04:39] LABS: INR 1.2 (0.80-1.20); PROTHROMBIN TIME 12.1 SECS (9.5-12.5)
[2024-01-08 04:50] LABS: BASOPHILS % (AUTO) 0.1 % (0.0-2.0); EOSINOPHILS # (AUTO) 0.2 K/uL (0.0-0.4); HEMATOCRIT 30.5 % (36-54); HEMOGLOBIN 10.4 g/dL (14.0-18.0); LYMPHOCYTES # (AUTO) 1.8 K/uL (1.0-5.5); LYMPHOCYTES % (AUTO) 24.4 % (20.5-51.5); MEAN CORPUSCULAR HEMOGLOBIN 30 pg (27-31); MEAN CORPUSCULAR HGB CONC 34 % (32-36); MEAN CORPUSCULAR VOLUME 87 fL (79.0-98.0); MONOCYTES # (AUTO) 0.8 K/uL (0.0-1.0); MONOCYTES % (AUTO) 10.6 % (1.7-9.3); NEUTROPHILS # (AUTO) 4.5 K/uL (1.8-7.7); NEUTROPHILS % (AUTO) 61.9 % (40.0-70.0); PLATELET COUNT (AUTO) 275 K/uL (130-430); RED CELL DISTRIBUTION WIDTH 15.2 % (9.0-15.0); WHITE BLOOD COUNT (AUTO) 7.3 K/uL (4.8-10.8)
[2024-01-08 04:53] LABS: ANION GAP 9 (5-15); CALCIUM 7.1 mg/dL (8.4-11.0); CARBON DIOXIDE 27 mmol/L (23-29); CHLORIDE 106 mmol/L (98-107); CREATININE 0.59 mg/dL (0.55-1.30); GLUCOSE 102 mg/dL (74-106); POTASSIUM 3.6 mmol/L (3.5-5.1); SODIUM SERUM 142 mmol/L (136-145); UREA NITROGEN, BLOOD 6 mg/dL (8-21)
[2024-01-08 08:00] VITALS: BP_SYST 138; PULSE 69; RESP 12; TEMP 98.2; O2SAT 95
[2024-01-08 10:08] VITALS: O2SAT 95
[2024-01-08 11:20] VITALS: BP_SYST 139; PULSE 53; RESP 16; TEMP 97; O2SAT 95
[2024-01-08] MEDS ORDERED: fentaNYL CITRATE/PF 100 MCG/2 ML AMP ONE (13:58)
[2024-01-08] MEDS ORDERED: MIDAZOLAM HCL 5 MG/5 ML VIAL ONE (13:59)
[2024-01-08 17:07] VITALS: BP_SYST 130; PULSE 59; RESP 17; TEMP 97.5; O2SAT 94
[2024-01-08 19:50] VITALS: BP_SYST 128; BP_SYST 134; PULSE 82; RESP 20; TEMP 97.7; O2SAT 96
[2024-01-09 00:35] VITALS: BP_SYST 128; PULSE 89; RESP 20; TEMP 99; O2SAT 95
[2024-01-09 05:55] LABS: BASOPHILS % (AUTO) 0.3 % (0.0-2.0); EOSINOPHILS # (AUTO) 0.2 K/uL (0.0-0.4); EOSINOPHILS % (AUTO) 2.2 % (0.0-4.0); HEMATOCRIT 32.8 % (36-54); LYMPHOCYTES # (AUTO) 1.8 K/uL (1.0-5.5); LYMPHOCYTES % (AUTO) 20.1 % (20.5-51.5); MEAN CORPUSCULAR HEMOGLOBIN 30 pg (27-31); MEAN CORPUSCULAR HGB CONC 34 % (32-36); MEAN CORPUSCULAR VOLUME 88 fL (79.0-98.0); MONOCYTES # (AUTO) 0.8 K/uL (0.0-1.0); MONOCYTES % (AUTO) 9.5 % (1.7-9.3); NEUTROPHILS # (AUTO) 6.1 K/uL (1.8-7.7); NEUTROPHILS % (AUTO) 67.9 % (40.0-70.0); PLATELET COUNT (AUTO) 260 K/uL (130-430); RED BLOOD CELL COUNT(AUTO) 3.71 MIL/uL (4.2-6.2); RED CELL DISTRIBUTION WIDTH 15.5 % (9.0-15.0); WHITE BLOOD COUNT (AUTO) 8.9 K/uL (4.8-10.8)
[2024-01-09 06:33] LABS: ANION GAP 10 (5-15); CALCIUM 7.6 mg/dL (8.4-11.0); CARBON DIOXIDE 27 mmol/L (23-29); CHLORIDE 102 mmol/L (98-107); CREATININE 0.79 mg/dL (0.55-1.30); GLUCOSE 126 mg/dL (74-106); POTASSIUM 3.5 mmol/L (3.5-5.1); SODIUM SERUM 139 mmol/L (136-145); UREA NITROGEN, BLOOD 4 mg/dL (8-21)
[2024-01-09 07:59] VITALS: BP_SYST 133; PULSE 72; RESP 18; TEMP 98.1; O2SAT 94
[2024-01-09 10:46] VITALS: O2SAT 94
[2024-01-09] MEDS ORDERED: DIF100 PO (11:17)
[2024-01-09 11:54] VITALS: BP_SYST 135; PULSE 72; RESP 17; TEMP 98.3; O2SAT 99
[2024-01-09 14:38] VITALS: BP_SYST 135; PULSE 72; RESP 17; TEMP 98.3; O2SAT 99
[2024-01-09 17:27] VITALS: BP_SYST 128; PULSE 81; RESP 19; TEMP 98; O2SAT 99
== END 2024-01-09 17:30 | DRG 871 ==
LOC: SED 21:08 → SIC 23:56 → STU 01-02 15:33
PROVIDERS: ADMIT Family Medicine; ATTEND Family Medicine
PROC: 5A1945Z Respiratory Ventilation, 24-96 Consecutive Hours (ICD-10-PCS; principal; 2023-12-28)
PROC: 0BH17EZ Insertion of Endotracheal Airway into Trachea, Via Natural or Artificial Opening (ICD-10-PCS; 2023-12-28)
PROC: 5A0935A Assistance with Respiratory Ventilation, Less than 24 Consecutive Hours, High Flow/Velocity Cannula (ICD-10-PCS; 2023-12-28)
PROC: 02HV33Z Insertion of Infusion Device into Superior Vena Cava, Percutaneous Approach (ICD-10-PCS; 2023-12-29)
PROC: B548ZZA Ultrasonography of Superior Vena Cava, Guidance (ICD-10-PCS; 2023-12-29)
PROC: 4A00X4Z Measurement of Central Nervous Electrical Activity, External Approach (ICD-10-PCS; 2024-01-06)
PROC: 0DB98ZX Excision of Duodenum, Via Natural or Artificial Opening Endoscopic, Diagnostic (ICD-10-PCS; 2024-01-08)
PROC: 0DH63UZ Insertion of Feeding Device into Stomach, Percutaneous Approach (ICD-10-PCS; 2024-01-08)
DX: A41.9 Sepsis, unspecified organism (principal); E43 Unspecified severe protein-calorie malnutrition; J18.9 Pneumonia, unspecified organism; R65.21 Severe sepsis with septic shock; J96.01 Acute respiratory failure with hypoxia; J12.82 Pneumonia due to coronavirus disease 2019; U07.1 COVID-19; G93.40 Encephalopathy, unspecified; J44.0 Chronic obstructive pulmonary disease with (acute) lower respiratory infection; Z99.11 Dependence on respirator [ventilator] status; N39.0 Urinary tract infection, site not specified; E83.39 Other disorders of phosphorus metabolism; E83.51 Hypocalcemia; K21.9 Gastro-esophageal reflux disease without esophagitis; D64.9 Anemia, unspecified; E11.65 Type 2 diabetes mellitus with hyperglycemia; I10 Essential (primary) hypertension; E86.0 Dehydration; R13.10 Dysphagia, unspecified; K31.7 Polyp of stomach and duodenum; Z66 Do not resuscitate; F03.90 Unspecified dementia, unspecified severity, without behavioral disturbance, psychotic disturbance, mood disturbance, and anxiety; E88.09 Other disorders of plasma-protein metabolism, not elsewhere classified; J32.3 Chronic sphenoidal sinusitis; Z88.8 Allergy status to other drugs, medicaments and biological substances; Z79.899 Other long term (current) drug therapy; Z79.1 Long term (current) use of non-steroidal anti-inflammatories (NSAID); Z68.20 Body mass index [BMI] 20.0-20.9, adult; Z93.6 Other artificial openings of urinary tract status; Z87.01 Personal history of pneumonia (recurrent); Z85.528 Personal history of other malignant neoplasm of kidney; Z93.1 Gastrostomy status
CPT/HCPCS: 36415; 36600; 43239; 43246; 70450-TC; 70551; 71045; 71275; 76376; 80048; 80053; 80076; 81000; 81001; 81015; 82803; 82948; 83605; 83735; 84100; 84484; 85025; 85379; 85610; 85651; 85730; 87040; 87070; 87081; 87086; 87205; 88305; 88313; 92610-GN; 93005; 94002; 94003; 94640; 94760; 95816; 99291; C9113; G0378; J0610; J0696; J1100; J1450; J1650; J2250; J2310; J2370; J2543; J2704; J2930; J3010; J3480; J3490; J7050; J7060; Q9967